=== PATIENT | male | born 1985 | race Caucasian/White ===

== ENCOUNTER 2017-06-20 14:46 | Inpatient (IN) ==
--- NOTE | 2017-06-20 15:19 | Emergency Department Note ---
Disposition Clinical Impression: Suicidal ideation Depression Qualifiers: Depression Type: unspecified Qualified Code(s): F32.9 - Major depressive disorder, single episode, unspecified Alcohol dependence Qualifiers: Substance use status: unspecified alcohol-induced disorder Qualified Code(s): F10.29 - Alcohol dependence with unspecified alcohol-induced disorder Disposition: Admitted As Inpatient Condition: Fair Referrals: NONE,PCP [Primary Care Provider] - Forms: ED Satisfaction Letter Time of Disposition: 17:47 Psych HPI - General Chief Complaint: ED Psychiatric Symptoms Stated Complaint: SI Time Seen by Provider: 06/20/17 14:56 Source: patient Mode of arrival: ambulatory Limitations: no limitations Nursing Notes Reviewed: Yes Vital Signs Reviewed: Yes - History of Present Illness HPI Narrative: Nontoxic-appearing 32-year-old male presents for evaluation of worsening depression and suicidal ideation and for the past one month. The patient states that his girlfriend has threatened to leave him with his 4-month-old daughter. He also admits to frequent recreational use of methamphetamine, last of which was earlier this morning. He denies any thoughts of harming anybody else. He denies any auditory or visual hallucinations. He denies any medical complaints or concerns at this time. He denies any previous episodes such as this. Pt complaint: suicidal ideation, feels depressed Onset (ago): month(s) (1) Duration: getting worse History of similar episodes: No Improves with: none Worsens with: none Context: recent drug abuse, significant life stressor Associated Psychiatric Symptoms: depression, suicidal ideation Associated symptoms: Reports: denies other symptoms Traumatic symptoms: denies traumatic injury Treatments prior to arrival: none Self harm or harm to others: admits thoughts of self harm - Related Data Allergies Allergy/AdvReac Type Severity Reaction Status Date / Time Unable to Assess Allergy Verified 06/20/17 14:52 All systems ED: reviewed and negative except as stated. Constitutional: Denies: fever, chills, weakness, weight change Eyes: Denies: eye pain, eye discharge, vision change ENT ED: Denies: ear pain, throat pain, dental pain, hearing loss, epistaxis, congestion, dysphagia Cardiovascular: Denies: chest pain, palpitations, dyspnea on exertion, edema, syncope Respiratory: Denies: cough, dyspnea, wheezes, hemoptysis, stridor Gastrointestinal: Denies: abdominal pain, nausea, vomiting, diarrhea, constipation, hematemesis, melena, hematochezia Genitourinary: Denies: urgency, dysuria, frequency, hematuria Musculoskeletal: Denies: back pain, neck pain, arthralgia, myalgia Integumentary: Denies: rash, abrasion, lesions Neurological: Denies: headache, weakness, numbness, paresthesias, confusion, abnormal gait, vertigo Psychiatric: Reports: as per HPI, depression, suicidal thoughts. Denies: anxiety, homicidal thoughts, auditory hallucinations, visual hallucinations Endocrine: Denies: fatigue Hematological/Lymphatic: Denies: easy bleeding, easy bruising Allergic/Immunologic: Denies: facial swelling, urticaria Past Medical History - Past Medical History Attestation: Yes The following information was validated with the patient. Source: patient, nursing notes reviewed Medical history: Reports: hepatitis Psychiatric history: Reports: no psych history - Social History Smoking Status: Current every day smoker Alcohol use: Reports: heavy, recent Drug use: Reports: methamphetamine Physical Exam - General Limitations: no limitations General appearance: alert, in no apparent distress - Head Head exam: atraumatic, normocephalic, normal inspection - Eye Eye exam: Present: normal appearance, PERRL, EOMI. Absent: nystagmus - ENT ENT exam: mucous membranes moist - Neck Neck exam: Present: normal inspection, full ROM, trachea midline - Chest Chest inspection: Present: normal inspection, symmetric chest wall rise - Respiratory Respiratory exam: Present: normal lung sounds bilaterally. Absent: respiratory distress, wheezes, stridor, accessory muscle use, prolonged expiratory phase - Cardiovascular Cardiovascular exam: Present: regular rate, normal rhythm, normal heart sounds - Abdominal Exam Abdominal exam: Present: soft, Non-Tender, normal bowel sounds - Extremities Exam Extremities exam: Present: normal inspection, full ROM. Absent: tenderness, pedal edema - Back Exam Back exam: Present: normal inspection, full ROM. Absent: tenderness - Neurological Exam Neurological exam: Present: alert, oriented X3 - Psychiatric Psychiatric exam: Present: normal affect, normal mood - Skin Skin exam: Present: warm, dry, intact, normal color. Absent: rash Course Course Narrative: 1745: I spoke with injury from [facility] after she had discussed this patient's case with the psychiatrist on-call. The psychiatrist operator specialist communications requested the patient be admitted to medicine for observation, due to the fact that he is a heavy daily drinker. He had disclosed to LESLIE Stephens, that he drinks anywhere from 12- 24 cans of beer per day. His last drink was earlier this morning. I discussed this plan with Dr. Eaton, who has had [id number] time with the patient. Dr. Eaton is in agreement with this plan. 175: I spoke with Pernell Breen, of the hospitalist service, who has accepted the patient for admission and the hospitalist care. The patient will undergo an observation period to monitor for alcohol withdrawal, prior to proceeding with further psychiatric assessment and treatment. Vital Signs Temperature 98.3 F 06/20/17 14:50 Pulse Rate 90 06/20/17 14:50 Respiratory Rate 18 06/20/17 14:50 Blood Pressure 115/77 06/20/17 14:50 O2 Sat by Pulse Oximetry 99 06/20/17 14:50 Temperature 98.3 F 06/20/17 14:50 Pulse Rate 90 06/20/17 14:50 Respiratory Rate 18 06/20/17 14:50 Blood Pressure 115/77 06/20/17 14:50 O2 Sat by Pulse Oximetry 99 06/20/17 14:50 Oxygen Delivery Oxygen Delivery Room Air Psych - Lab Data Lab results reviewed: Yes I reviewed the patient's lab results. Lab results narrative: Laboratory Last Values WBC 6.2 K/mcL (4.3-11.1) 06/20/17 15:10 RBC 5.23 M/mcL (4.19-5.50) 06/20/17 15:10 Hgb 16.1 g/dL (12.9-16.9) 06/20/17 15:10 Hct 48.4 % (37.5-50.1) 06/20/17 15:10 MCV 92.5 fL (83.0-100.0) 06/20/17 15:10 MCH 30.8 pg (28.0-33.3) 06/20/17 15:10 MCHC 33.3 g/dL (31.6-35.5) 06/20/17 15:10 RDW 12.4 % (11.5-14.5) 06/20/17 15:10 Plt Count 318 K/mcL (140-400) 06/20/17 15:10 MPV 9.5 fL (9.4-12.4) 06/20/17 15:10 Immature Gran % 0.2 % (0-4) 06/20/17 15:10 Seg Neutrophils % 53.5 % 06/20/17 15:10 Lymphocytes % 29.3 % 06/20/17 15:10 Monocytes % 13.7 % 06/20/17 15:10 Eosinophils % 2.8 % 06/20/17 15:10 Basophils % 0.5 % 06/20/17 15:10 Neutrophils # 3.3 K/mcL (1.6-8.9) 06/20/17 15:10 Lymphocytes # 1.8 K/mcL (0.6-4.6) 06/20/17 15:10 Monocytes # 0.8 K/mcL (0.0-1.3) 06/20/17 15:10 Eosinophils # 0.2 K/mcL (0.0-0.6) 06/20/17 15:10 Basophils # 0.0 K/mcL (0.0-0.2) 06/20/17 15:10 Sodium 135 mEq/L (136-145) L 06/20/17 15:10 Potassium 3.8 mEq/L (3.5-5.1) 06/20/17 15:10 Chloride 102 mEq/L (98-107) 06/20/17 15:10 Carbon Dioxide 29 mEq/L (23-29) 06/20/17 15:10 BUN 9 mg/dL (6-20) 06/20/17 15:10 Creatinine 0.75 mg/dL (0.70-1.30) 06/20/17 15:10 Est GFR ( Amer) > 60 (> 60) 06/20/17 15:10 Est GFR (Non-Af Amer) > 60 (> 60) 06/20/17 15:10 BUN/Creatinine Ratio 12 (6-26) 06/20/17 15:10 Glucose 69 mg/dL (70-105) L 06/20/17 15:10 Calculated Osmolality 277 (280-300) L 06/20/17 15:10 Calcium 9.4 mg/dL (8.6-10.3) 06/20/17 15:10 TSH 0.635 mcIU/mL (0.340-5.600) 06/20/17 15:10 Urine Color Yellow (Yellow) 06/20/17 15:10 Urine Clarity Clear (Clear) 06/20/17 15:10 Urine pH 7.0 pH Units (5.0-8.0) 06/20/17 15:10 Ur Specific [place] 1.023 (1.010-1.025) 06/20/17 15:10 Urine Protein Negative mg/dL (Neg-Trace) 06/20/17 15:10 Urine Glucose (UA) Normal mg/dL (Normal) 06/20/17 15:10 Urine Ketones Negative mg/dL (Negative) 06/20/17 15:10 Urine Blood Negative (Negative) 06/20/17 15:10 Urine Nitrite Negative (Negative) 06/20/17 15:10 Urine Bilirubin Negative (Negative) 06/20/17 15:10 Urine Urobilinogen Normal mg/dL (Normal) 06/20/17 15:10 Ur Leukocyte Esterase Negative (Negative) 06/20/17 15:10 Salicylates < 5.0 mg/dL (15.0-30.0) L 06/20/17 15:10 Urine Opiates Screen Negative ng/mL (Zczlay=630) 06/20/17 15:10 Acetaminophen < 1.0 mcg/mL (10-30) L 06/20/17 15:10 Ur Barbiturates Screen Negative ng/mL (Ftvehu=049) 06/20/17 15:10 Ur Phencyclidine Scrn Negative ng/mL (Cutoff=25) 06/20/17 15:10 Ur Amphetamines Screen Positive ng/mL (Dxxjdo=6823) H 06/20/17 15:10 U Benzodiazepines Scrn Negative ng/mL (Tdeanr=625) 06/20/17 15:10 Urine Cocaine Screen Negative ng/mL (Cutoff= 300) 06/20/17 15:10 U Marijuana (THC) Screen Negative ng/mL (Cutoff = 50) 06/20/17 15:10 Ethyl Alcohol < 10 mg/dL (0-10) 06/20/17 15:10 Result diagrams: 06/20/17 15:10 06/20/17 15:10 Lab Results 06/20/17 06/20/17 06/20/17 Range/Units 15:10 15:10 15:10 WBC 6.2 (4.3-11.1) K/mcL RBC 5.23 (4.19-5.50) M/mcL Hgb 16.1 (12.9-16.9) g/dL Hct 48.4 (37.5-50.1) % MCV 92.5 (83.0-100.0) fL MCH 30.8 (28.0-33.3) pg MCHC 33.3 (31.6-35.5) g/dL RDW 12.4 (11.5-14.5) % Plt Count 318 (140-400) K/mcL MPV 9.5 (9.4-12.4) fL Immature Gran % 0.2 (0-4) % Seg Neutrophils % 53.5 % Lymphocytes % 29.3 % Monocytes % 13.7 % Eosinophils % 2.8 % Basophils % 0.5 % Neutrophils # 3.3 (1.6-8.9) K/mcL Lymphocytes # 1.8 (0.6-4.6) K/mcL Monocytes # 0.8 (0.0-1.3) K/mcL Eosinophils # 0.2 (0.0-0.6) K/mcL Basophils # 0.0 (0.0-0.2) K/mcL Sodium (136-145) mEq/L Potassium (3.5-5.1) mEq/L Chloride (98-107) mEq/L Carbon Dioxide (23-29) mEq/L BUN (6-20) mg/dL Creatinine (0.70-1.30) mg/dL Est GFR ( Amer) (> 60) Est GFR (Non-Af Amer) (> 60) BUN/Creatinine Ratio (6-26) Glucose (70-105) mg/dL Calculated Osmolality (280-300) Calcium (8.6-10.3) mg/dL TSH (0.340-5.600) mcIU/mL Urine Color Yellow (Yellow) Urine Clarity Clear (Clear) Urine pH 7.0 (5.0-8.0) pH Units Ur Specific [place] 1.023 (1.010-1.025) Urine Protein Negative (Neg-Trace) mg/dL Urine Glucose (UA) Normal (Normal) mg/dL Urine Ketones Negative (Negative) mg/dL Urine Blood Negative (Negative) Urine Nitrite Negative (Negative) Urine Bilirubin Negative (Negative) Urine Urobilinogen Normal (Normal) mg/dL Ur Leukocyte Esterase Negative (Negative) Salicylates (15.0-30.0) mg/dL Urine Opiates Screen Negative (Mxlvky=886) ng/mL Acetaminophen (10-30) mcg/mL Ur Barbiturates Screen Negative (Ymahai=633) ng/mL Ur Phencyclidine Scrn Negative (Cutoff=25) ng/mL Ur Amphetamines Screen Positive H (Zybqee=8509) ng/mL U Benzodiazepines Scrn Negative (Uxtqmk=697) ng/mL Urine Cocaine Screen Negative (Cutoff= 300) ng/mL U Marijuana (THC) Screen Negative (Cutoff = 50) ng/mL Ethyl Alcohol (0-10) mg/dL 06/20/17 Range/Units 15:10 WBC (4.3-11.1) K/mcL RBC (4.19-5.50) M/mcL Hgb (12.9-16.9) g/dL Hct (37.5-50.1) % MCV (83.0-100.0) fL MCH (28.0-33.3) pg MCHC (31.6-35.5) g/dL RDW (11.5-14.5) % Plt Count (140-400) K/mcL MPV (9.4-12.4) fL Immature Gran % (0-4) % Seg Neutrophils % % Lymphocytes % % Monocytes % % Eosinophils % % Basophils % % Neutrophils # (1.6-8.9) K/mcL Lymphocytes # (0.6-4.6) K/mcL Monocytes # (0.0-1.3) K/mcL Eosinophils # (0.0-0.6) K/mcL Basophils # (0.0-0.2) K/mcL Sodium 135 L (136-145) mEq/L Potassium 3.8 (3.5-5.1) mEq/L Chloride 102 (98-107) mEq/L Carbon Dioxide 29 (23-29) mEq/L BUN 9 (6-20) mg/dL Creatinine 0.75 (0.70-1.30) mg/dL Est GFR ( Amer) > 60 (> 60) Est GFR (Non-Af Amer) > 60 (> 60) BUN/Creatinine Ratio 12 (6-26) Glucose 69 L (70-105) mg/dL Calculated Osmolality 277 L (280-300) Calcium 9.4 (8.6-10.3) mg/dL TSH 0.635 (0.340-5.600) mcIU/mL Urine Color (Yellow) Urine Clarity (Clear) Urine pH (5.0-8.0) pH Units Ur Specific [place] (1.010-1.025) Urine Protein (Neg-Trace) mg/dL Urine Glucose (UA) (Normal) mg/dL Urine Ketones (Negative) mg/dL Urine Blood (Negative) Urine Nitrite (Negative) Urine Bilirubin (Negative) Urine Urobilinogen (Normal) mg/dL Ur Leukocyte Esterase (Negative) Salicylates < 5.0 L (15.0-30.0) mg/dL Urine Opiates Screen (Oeeqbd=799) ng/mL Acetaminophen < 1.0 L (10-30) mcg/mL Ur Barbiturates Screen (Hruxgn=330) ng/mL Ur Phencyclidine Scrn (Cutoff=25) ng/mL Ur Amphetamines Screen (Wgjxrk=7594) ng/mL U Benzodiazepines Scrn (Yyigpe=424) ng/mL Urine Cocaine Screen (Cutoff= 300) ng/mL U Marijuana (THC) Screen (Cutoff = 50) ng/mL Ethyl Alcohol < 10 (0-10) mg/dL Psychiatric Medical Clearance - Medical Clearance Checklist Medical History: Suicidal ideation (Acute) Depression (Acute) Alcohol dependence (Acute) No Social History Section defined Current Vitals: Last Vital Signs Temp 98.3 F 06/20/17 14:50 Pulse 90 06/20/17 14:50 Resp 18 06/20/17 14:50 BP 115/77 06/20/17 14:50 Pulse Ox 99 06/20/17 14:50 Psychiatric Lab Panel: Drug Levels and Toxicity 06/20/17 06/20/17 15:10 15:10 Urine Opiates Screen Negative Acetaminophen < 1.0 L Ur Barbiturates Screen Negative Ur Phencyclidine Scrn Negative Ur Amphetamines Screen Positive H U Benzodiazepines Scrn Negative Urine Cocaine Screen Negative U Marijuana (THC) Screen Negative Ethyl Alcohol < 10 Abnormal Labs: Abnormal lab results Sodium 135 mEq/L (136-145) L 06/20/17 15:10 Glucose 69 mg/dL (70-105) L 06/20/17 15:10 Calculated Osmolality 277 (280-300) L 02/04/18 15:10 Salicylates < 5.0 mg/dL (15.0-30.0) L 06/20/17 15:10 Acetaminophen < 1.0 mcg/mL (10-30) L 06/20/17 15:10 Ur Amphetamines Screen Positive ng/mL (Zeubgi=6004) H 06/20/17 15:10 Attestation Statement - Attestation Attestation: Patient was seen in cooperation with the physician machine operator assistant. I reviewed the history, physical, assessment, and plan, and I agree with the findings. Additionally I personally saw and evaluated this patient and had [id number] time with this patient. 32-year-old male presents to the emergency department with suicidal ideation and wanting to . He is an alcoholic and is now using crystal meth. 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 He said the last 3 or 4 months his depression for getting worse he is to the point that he feels like he just wanted unwanted be here anymore, but he does not have a specific plan in which to hurt himself or anyone else. He says he occasionally hears voices but only after his been up for extended periods of time. He is here seeking help today. On examination vital signs are stable. ENT is unremarkable. Heart normal lungs normal. Abdomen soft nontender. Extremities unremarkable. Neurologically intact patient does not appear intoxicated he really took a beer this morning and alignment of meth. Skin no rashes and psychiatric exam patient appears depressed. ED course we will do basic labs to get a medical clearance. Them will call [facility]. They will help disposition the patient. [facility] did want the patient to be admitted, however they were concerned because of the polysubstance abuse they wanted him admitted to medicine first. Hospitalist was notified and agreed to accept the patient to ensure there is no issues with detox. And further psychiatric evaluation after that. I agree with the resident physician assessment and plan.
[2017-06-20 15:31] LABS: Basophils % 0.5 %; Eosinophils # 0.2 K/mcL (0.0-0.6); Eosinophils % 2.8 %; Hematocrit 48.4 % (37.5-50.1); Hemoglobin 16.1 g/dL (12.9-16.9); Immature Granulocytes % 0.2 % (0-4); Lymphocytes # 1.8 K/mcL (0.6-4.6); Lymphocytes % 29.3 %; Mean Corpuscular HGB Conc 33.3 g/dL (31.6-35.5); Mean Corpuscular Hemoglobin 30.8 pg (28.0-33.3); Mean Corpuscular Volume 92.5 fL (83.0-100.0); Mean Platelet Volume 9.5 fL (9.4-12.4); Monocytes # 0.8 K/mcL (0.0-1.3); Monocytes % 13.7 %; Neutrophils # 3.3 K/mcL (1.6-8.9); Platelet Count 318 K/mcL (140-400); Red Blood Count 5.23 M/mcL (4.19-5.50); Red Cell Distribution Width 12.4 % (11.5-14.5); Segmented Neutrophils % 53.5 %
[2017-06-20 15:33] LABS: Bilirubin,Urine Negative (Negative); Blood,Urine Negative (Negative); Clarity,Urine Clear (Clear); Color,Urine Yellow (Yellow); Glucose,Urine (UA) Normal (Normal); Ketones,Urine Negative (Negative); Leukocyte Esterase,Urine Negative (Negative); Nitrite,Urine Negative (Negative); Protein,Urine Negative (Neg-Trace); Specific Gravity,Urine 1.023 (1.010-1.025); Urobilinogen,Urine Normal (Normal)
[2017-06-20 15:50] LABS: Acetaminophen < 1.0 mcg/mL (10-30); Ethanol < 10 mg/dL (0-10); Salicylate < 5.0 mg/dL (15.0-30.0)
[2017-06-20 15:52] LABS: BUN/Creatinine Ratio 12 (6-26); Blood Urea Nitrogen 9 mg/dL (6-20); Calcium 9.4 mg/dL (8.6-10.3); Carbon Dioxide 29 mEq/L (23-29); Chloride 102 mEq/L (98-107); Glucose 69 mg/dL (70-105); Osmolality,Calculated 277 (280-300); Potassium 3.8 mEq/L (3.5-5.1); Sodium 135 mEq/L (136-145); eGFR For African Americans > 60 (> 60); eGFR For Non-African Americans > 60 (> 60)
[2017-06-20 16:03] LABS: Thyroid Stimulating Hormone 0.635 mcIU/mL (0.340-5.600)
[2017-06-20 16:17] LABS: Amphetamine Screen,Urine Positive ng/mL (Cutoff=1000); Barbiturate Screen,Urine Negative ng/mL (Cutoff=200); Benzodiazepines Screen,Urine Negative ng/mL (Cutoff=200); Cannabinoid Screen,Urine Negative ng/mL (Cutoff = 50); Cocaine Screen,Urine Negative ng/mL (Cutoff= 300); Opiate Screen,Urine Negative ng/mL (Cutoff=300); Phencyclidine Screen,Urine Negative ng/mL (Cutoff=25)
[2017-06-20] MEDS ORDERED: Thiamine (B-1) 100 MG in D5% in Water 50 ML IVPB ONE (17:48)
[2017-06-20] MEDS ORDERED: MVI, adult with vitamin K 10 ML in 0.9 % Sodium Chloride 1,000 ML IVC ONE (17:48)
[2017-06-20] MEDS ORDERED: Folic Acid 1 MG in D5% in Water 50 ML IVPB ONE (17:48)
[2017-06-20 18:18] LABS: Prothrombin Time 10.3 Seconds (9.4-12.1)
[2017-06-20 18:30] LABS: Magnesium 2.2 mg/dL (1.6-2.6); Phosphorous 3.9 mg/dL (2.7-4.5)
[2017-06-20] MEDS ORDERED: Folic Acid 1 MG in 0.9 % Sodium Chloride 50 ML IVPB ONE (18:30)
[2017-06-20] MEDS ORDERED: Thiamine (B-1) 100 MG in 0.9 % Sodium Chloride 50 ML IVPB ONE (18:30)
[2017-06-20] MEDS ORDERED: *HR* LORazepam 2 MG/ML VIAL IVP ONE ×2 (18:53)
[2017-06-20] MEDS ORDERED: *HR* Water for inj. (sterile) 10 ML VIAL IV ONE (18:53)
[2017-06-20] MEDS ORDERED: Naloxone 0.4 MG/ML INJ IVP PRN (19:21)
[2017-06-20] MEDS ORDERED: *HR* LORazepam 2 MG/ML VIAL IVP PRN (19:25)
[2017-06-20] MEDS: Nicotine 14 MG PATCH.TD24 TD SCH (20:04)
[2017-06-20] MEDS ORDERED: Ipratropium/Albuterol Neb 3 ML IH PRN (20:33)
--- NOTE | 2017-06-20 23:51 | Internal Med History&Physical ---
Addendum entered and electronically signed by Pernell Slater CNP 00:18: Patient encounter was on 06/20/17 Original Note: <Pernell Slater - Last Filed: 06/21/17 00:18> Date of Encounter: 06/21/17 Time of Encounter: 19:00 Assessment and Plan (1) Suicidal ideation Current visit: Yes Status: Acute Acute on chronic suicidal ideation. Pt. states he was suicidal today and previously d/t relationship problems. States he snorted meth this morning and drink 24 oz of beer. Reports trying to shoot up and OD one week ago as well as previously. Reports chronic depression. Denies receiving psychiatric help previously or any previous psychiatric hospitalizations. Hx of alcohol abuse ( drinks 12-24 beers daily) and illicit drug abuse (cocaine, heroin, and meth). During exam, pt. states he no longer has suicidal ideations today and no homicidal ideation. States he would like help. Suicide and seizure precautions. Sitter. D5 in 0.9 NS d/t hypoglycemia. Continuous cardiac telemetry. EKG. CIWA scale. 1 mg Ativan Q2 for agitation/withdrawal. Psychiatric consult ordered for post-discharge recommendations. SW consult ordered to assess for rehabilitation needs. Pt. to be monitored closely for signs of depression or changes in mentation. Pt. discussed w/Dr. Rowland who is in agreement w/plan of care. Pt. is high risk for further morbidity d/t suicidal ideations today, previous ideations and attempts at suicide, no previous psychiatric care, current drug and alcohol abuse. Observation. (2) Drug abuse and dependence Current visit: Yes Status: Chronic Hx of chronic drug abuse and dependence. Pt. states he uses cocaine, heroin, and meth. States he used heroin four days ago and meth was snorted this morning. States he tried to shoot up and OD 1 week ago. Reports he has attempted to shoot up and OD several times. Psychiatric consult ordered. SW consult ordered for rehabilitation needs. Ativan 1 mg Q2 for agitation/ withdrawal. Seizure precautions. Neuro checks Q2. EKG. Cardiac monitoring. Supplemental O2 w/titration and SpO2 monitoring. (3) Alcohol dependence Current visit: Yes Status: Chronic Hx of chronic alcohol abuse. Pt. reports he drinks 12-24 beers daily. CIWA scale. 720 mL TIDWM beer ordered. Hepatic panel ordered. SW consult ordered to assess for rehabilitation needs post-discharge. Thiamine and folic acid supplementation. Qualifiers: Substance use status: unspecified alcohol-induced disorder Qualified Code(s ): F10.29 - Alcohol dependence with unspecified alcohol-induced disorder (4) Depression Current visit: Yes Status: Chronic Hx of chronic depression. Pt. reports he does not see provider for his psychiatric needs. Psychiatric consult ordered to assess for post-discharge needs. SW consult ordered for possible rehabilitation. Qualifiers: Depression Type: other depression Qualified Code(s): F32.89 - Other specified depressive episodes (5) Hepatitis Current visit: Yes Status: Chronic Hx of hepatitis. Pt. unclear about dx. Hepatic panel ordered. Hepatitis viral panel ordered. (6) COPD (chronic obstructive pulmonary disease) Current visit: Yes Status: Chronic Hx of chronic COPD w/emphysema. Stable. Supplemental O2 w/titration and SpO2 monitoring. DuoNebs Q6 PRN. Qualifiers: COPD type: emphysema Emphysema type: unspecified Qualified Code(s): J43.9 - Emphysema, unspecified (7) DVT prophylaxis Current visit: Yes Status: Acute Lovenox 40 mg 0630 daily for DVT prophylaxis. Monitor pt. for signs of bleeding. Internal Medicine - H&P: HPI Chief complaint: SI/Drug/Alcohol abuse Admitted From: Emergency Dept Plans for Post Hospital Care: Home History of present illness: Mr. Bates is a 32 year old male with medical hx of COPD/emphysema and hepatitis presents from the ED with chief complaint of suicidal ideation today. Patient states that he snorted meth this morning and drank 24 oz. of beer before coming to ED. States he drinks 12-24 beers per day and uses cocaine, heroin, and meth. Reports meth is what he uses most often, but he used heroin 4 days ago. Pt. states he is suicidal d/t relationship problems and tried to commit suicide 1 week ago by shooting up. Reports several attempts prior to that. Denies previous psychiatric care or hospitalization. Pt. reports SOB but denies recent illness, fever, chills, nausea, vomiting, chest pain, headache, palpitations, abdominal pain, diarrhea, constipation, dizziness, lightheadedness, pre-syncope , or syncope. Past Med Surg Social Fam HX - Past Medical History Source: patient, old records reviewed, obtained from family Medical history: COPD, hepatitis Psychiatric history: no psych history - Social History Smoking Status: Current every day smoker Packs per day: 2 PPD Smokeless Tobacco Status: No Alcohol use: heavy (12-24 beers daily), recent Drug use: cocaine, methamphetamine, other (Heroin) Current living situation: Home Activity Level: Independent ambulation Recent Out of Country Travel Within the Last 8 Weeks: No Exposure or Possible Exposure to Illness During Travel: No - Family History Father Race: Family Member Ethnicity: Non- Living Status: Still Living Hx Family Cardiac Disorders: Yes Mother Race: Family Member Ethnicity: Non- Living Status: Still Living Hx Family Autoimmune Disorders: Yes (RA) Sister Race: Family Member Ethnicity: Non- Living Status: Still Living Hx Family Medical Disorders: No Internal Medicine - H&P: Meds 3 Allergy/AdvReac Type Severity Reaction Status Date / Time Unable to Assess Allergy Verified 06/20/17 14:52 All Systems PM: A 10-system review of systems was performed and is negative for pertinent findings except as documented above in the HPI. - Constitutional Constitutional: no chills, no fever(s), no night sweats - EENT Eyes: no change in vision, no discharge, no pain, no photophobia Ears: no ear discharge, no ear pain, no tinnitus Nose, mouth and throat: no dysphagia, no nasal discharge, no neck pain, no sore throat - Breasts Breasts: as per HPI - Cardiovascular Cardiovascular ROS IM: as per HPI, dyspnea, no chest pain, no diaphoresis, no lightheadedness, no palpitations, no syncope - Respiratory Respiratory: as per HPI, dyspnea, no cough, no wheezing, no excessive phlegm production - Gastrointestinal Gastrointestinal: no abdominal pain, no diarrhea, no hematemesis, no hematochezia, no melena, no nausea, no vomiting - Genitourinary Genitourinary ROS male: as per HPI - Musculoskeletal Musculoskeletal ROS IM: no numbness, no tingling - Integumentary Integumentary IM: no rash, no unusual bruising - Neurological Neurological ROS: no confusion, no convulsions, no focal weakness, no numbness, no tingling, no tremor(s) - Psychiatric Psychiatric: as per HPI - Endocrine Endocrine IM: as per HPI - Hematologic/Lymphatic Hematologic/Lymphatic: no easy bruising - Allergic/Immunologic Allergic/Immunologic: as per HPI - Constitutional Vitals: Temp Pulse Resp BP Pulse Ox 99.1 F 61 16 107/65 97 06/20/17 20:14 06/20/17 20:14 06/20/17 20:14 06/20/17 20:14 06/20/17 20:14 General appearance: Present: cooperative, A&O X 3, pleasant, no acute distress, underweight, answers questions appropriately - Head Head exam: Present: atraumatic, normocephalic - Eye Eye exam: Present: PERRL, conjuntiva pink, sclera anicteric Pupils: Present: PERRL - ENT ENT exam: Present: normal exam - Neck Neck exam general surgery: Present: normal inspection, supple, trachea midline. Absent: lymphadenopathy - Respiratory Respiratory exam: Present: CTAB. Absent: accessory muscle use, rales, rhonchi, wheezes - Cardiovascular Cardiovascular exam: Present: RRR, +S1, +S2. Absent: diastolic murmur, gallop, rubs, systolic murmur - GI/Abdominal GI/Abdominal exam: Present: normal bowel sounds, soft, no peritoneal signs. Absent: distended, tenderness - Rectal Rectal exam: Present: deferred - Additional comments: exam deferred. - Extremities Exam Extremities exam: Present: warm, radial pulses palpable and symmetrical. Absent : calf tenderness, cyanotic, pedal edema - Back Exam Back exam: Present: normal inspection - Neurological Exam Neurological exam: Present: CN II-XII intact, oriented X3, no focal deficits. Absent: pronater drift, facial droop, speech deficit - Psychiatric Psychiatric exam: Present: suicidal ideation - Skin Skin exam: Present: dry, intact Internal Med - H&P Results - Labs CBC & Chem 7: 06/20/17 15:10 06/20/17 15:10 <Marcin Rowland - Last Filed: 06/21/17 02:52> Date of Encounter: 06/21/17 Time of Encounter: 00:45 - Constitutional Vitals: Temp Pulse Resp BP Pulse Ox 98.2 F 55 16 94/57 97 06/20/17 23:56 06/20/17 23:56 06/20/17 23:56 06/20/17 23:56 06/20/17 23:56 General appearance: Present: cooperative, A&O X 3, pleasant, no acute distress - Head Head exam: Present: atraumatic - Eye Eye exam: Present: EOMI, normal appearance, PERRL. Absent: scleral icterus Pupils: Present: normal accommodation - ENT ENT exam: Present: mucous membranes dry, normal exam - Neck Neck exam general surgery: Present: supple - Respiratory Respiratory exam: Present: CTAB. Absent: rales, rhonchi, wheezes - Cardiovascular Cardiovascular exam: Present: RRR, +S1, +S2 - GI/Abdominal GI/Abdominal exam: Present: soft. Absent: tenderness - Extremities Exam Extremities exam: Present: warm. Absent: calf tenderness, cyanotic, pedal edema - Back Exam Back exam: Absent: CVA tenderness (L), CVA tenderness (R) - Neurological Exam Neurological exam: Present: alert, CN II-XII intact, oriented X3, no focal deficits - Psychiatric Psychiatric exam: Present: depressed, flat affect, suicidal ideation - Skin Skin exam: Present: dry, warm Internal Med - H&P Results - Labs CBC & Chem 7: 06/21/17 01:07 06/20/17 15:10 Labs: Short CBC 06/21/17 Range/Units 01:07 WBC 4.3 (4.3-11.1) K/mcL Hgb 14.8 (12.9-16.9) g/dL Hct 44.2 (37.5-50.1) % Plt Count 286 (140-400) K/mcL Neutrophils # 1.3 L (1.6-8.9) K/mcL Cardiac Enzymes 06/21/17 Range/Units 01:07 Troponin I < 0.03 (< 0.04) ng/mL - Attending Attestation I discussed the patient [place], PMH, ROS, lab data, and exam findings with Matthew Slater CNP. I then saw and examined patient independently as well. Patient is awake, resting, and in no distress. He admits to suicidal plans and intent. He is requesting mental health and help. He admits to drug abuse, especially in efforts to hurt himself/overdose. He also drinks excessive alcohol -- at least 12 -24 beers per day. He has never gone through alcohol withdrawal because he has never stopped drinking alcohol. I agree with [facility] protocol, but I asked Matthew to order some beer for him TID with meals in efforts of avoiding withdrawal. We will keep him in suicide precautions and have a sitter at the bedside. Psychiatry will see him in the morning. Meanwhile, we will monitor him on telemetry. I could not find an EKG from the ER, and I don' t believe one was done. I will order a baseline EKG and continue monitoring his cardiorespiratory status. Other than my comments above and noted exam findings, I agree with Matthew's assessment and plan.
[2017-06-21 01:44] LABS: Basophils % 0.7 %; Eosinophils # 0.2 K/mcL (0.0-0.6); Eosinophils % 4.2 %; Hematocrit 44.2 % (37.5-50.1); Hemoglobin 14.8 g/dL (12.9-16.9); Lymphocytes # 2.1 K/mcL (0.6-4.6); Lymphocytes % 49.2 %; Mean Corpuscular HGB Conc 33.5 g/dL (31.6-35.5); Mean Corpuscular Volume 92.5 fL (83.0-100.0); Mean Platelet Volume 9.5 fL (9.4-12.4); Monocytes # 0.6 K/mcL (0.0-1.3); Monocytes % 14.8 %; Neutrophils # 1.3 K/mcL (1.6-8.9); Platelet Count 286 K/mcL (140-400); Red Blood Count 4.78 M/mcL (4.19-5.50); Red Cell Distribution Width 12.4 % (11.5-14.5); Segmented Neutrophils % 31.1 %
[2017-06-21 01:50] LABS: Hemoglobin A1C 5.1 %
[2017-06-21 02:51] LABS: Hepatitis A Antibody IgM Nonreactive (Nonreactive); Hepatitis B Core IgM Nonreactive (Nonreactive); Hepatitis B Surface Antigen Nonreactive (Nonreactive)
[2017-06-21 02:53] LABS: Hepatitis C Virus Antibody Reactive (Nonreactive)
[2017-06-21 03:15] LABS: Albumin 3.4 g/dL (3.5-5.7); Albumin/Globulin Ratio 1.3 (1.1-2.2); Bilirubin,Direct 0.1 mg/dL (0.0-0.2); Bilirubin,Indirect 0.3 mg/dL (0.0-1.2); Bilirubin,Total 0.4 mg/dL (0.3-1.0); Globulin 2.6 g/dL (2.4-3.5)
[2017-06-21 03:18] LABS: Alanine Aminotransferase 92 Units/L (7-52); Albumin 3.4 g/dL (3.5-5.7); Albumin/Globulin Ratio 1.4 (1.1-2.2); Alkaline Phosphatase 83 Units/L (34-104); Aspartate Amino Transferase 66 Units/L (13-39); BUN/Creatinine Ratio 11 (6-26); Bilirubin,Total 0.4 mg/dL (0.3-1.0); Blood Urea Nitrogen 11 mg/dL (6-20); Calcium 8.5 mg/dL (8.6-10.3); Carbon Dioxide 26 mEq/L (23-29); Chloride 106 mEq/L (98-107); Cholesterol 99 mg/dL (< 200); Globulin 2.5 g/dL (2.4-3.5); Glucose 97 mg/dL (70-105); HDL Cholesterol 50 mg/dL (40-59); LDL Cholesterol,Calculated 40 mg/dL (0-99); Magnesium 2.1 mg/dL (1.6-2.6); Osmolality,Calculated 281 (280-300); Phosphorous 3.6 mg/dL (2.7-4.5); Potassium 4.1 mEq/L (3.5-5.1); Sodium 136 mEq/L (136-145); Total Protein 5.9 g/dL (6.4-8.9); Triglycerides 45 mg/dL (< 150); eGFR For African Americans > 60 (> 60); eGFR For Non-African Americans > 60 (> 60)
[2017-06-21] MEDS: D5% in 0.9% NACL 1,000 ML IVC SCH ×2 (03:57→14:22)
[2017-06-21] MEDS: *HR* Enoxaparin 40 MG/0.4 ML SYRINGE SQ SCH (05:52)
[2017-06-21] MEDS: Acetaminophen 325 MG TABLET PO PRN (10:29)
[2017-06-21] MEDS: Nicotine 14 MG PATCH.TD24 TD SCH (10:30)
[2017-06-21] MEDS: Beer can PO SCH ×4 (10:31→17:20)
--- NOTE | 2017-06-21 15:01 | Internal Med Progress Note ---
Date of Encounter: 06/21/17 Time of Encounter: 15:39 - Assessment and plan (1) Suicidal ideation Current Visit: Yes Status: Acute Assessment and plan: Acute on chronic suicidal ideation. Pt. states he was suicidal today and previously d/t relationship problems. States he snorted meth this morning and drink 24 oz of beer. Reports trying to shoot up and OD one week ago as well as previously. Reports chronic depression. Denies receiving psychiatric help previously or any previous psychiatric hospitalizations. Hx of alcohol abuse ( drinks 12-24 beers daily) and illicit drug abuse (cocaine, heroin, and meth). During exam, pt. states he no longer has suicidal ideations today and no homicidal ideation. States he would like help. Suicide and seizure precautions. Sitter. D5 in 0.9 NS d/t hypoglycemia. Continuous cardiac telemetry. EKG. CIWA scale. 1 mg Ativan Q2 for agitation/withdrawal. SW consult ordered to assess for rehabilitation needs. Pt. to be monitored closely for signs of depression or changes in mentation. Psychiatry consulted, discharge planning. Recommendations appreciated. (2) Alcohol dependence Current Visit: Yes Status: Chronic Assessment and plan: Hx of chronic alcohol abuse. Pt. reports he drinks 12-24 beers daily. CIWA scale. 720 mL TIDWM beer ordered. SW consult ordered to assess for rehabilitation needs post-discharge. Thiamine and folic acid supplementation. Will need to do taper patient and discontinue beer. Qualifiers: Substance use status: unspecified alcohol-induced disorder Qualified Code(s ): F10.29 - Alcohol dependence with unspecified alcohol-induced disorder (3) COPD (chronic obstructive pulmonary disease) Current Visit: Yes Status: Chronic Assessment and plan: Hx of chronic COPD w/emphysema. Stable. Supplemental O2 w/titration and SpO2 monitoring. DuoNebs Q6 PRN. Qualifiers: COPD type: emphysema Emphysema type: unspecified Qualified Code(s): J43.9 - Emphysema, unspecified (4) Depression Current Visit: Yes Status: Chronic Assessment and plan: Hx of chronic depression. Pt. reports he does not see provider for his psychiatric needs. Psychiatric consult ordered to assess for post-discharge needs. SW consult ordered for possible rehabilitation. Qualifiers: Depression Type: other depression Qualified Code(s): F32.89 - Other specified depressive episodes (5) Drug abuse and dependence Current Visit: Yes Status: Chronic (6) Hepatitis Current Visit: Yes Status: Chronic (7) DVT prophylaxis Current Visit: Yes Status: Acute - Subjective Interval history: Patient today has complaints of suicidal ideation in the morning but now does not feel that way. He admits to anxiety, denies tremors, restlessness, agitation, diarrhea, abdominal pain. - Constitutional Vitals: Temp Pulse Resp BP Pulse Ox 98.4 F 70 16 111/72 92 06/21/17 11:20 06/21/17 11:20 06/21/17 11:20 06/21/17 11:20 06/21/17 11:20 General appearance: Present: cooperative, A&O X 3, pleasant, no acute distress - Head Head exam: Present: atraumatic, normocephalic - Eye Eye exam: Present: PERRL, conjuntiva pink, sclera anicteric Pupils: Present: PERRL - Neck Neck exam general surgery: Present: supple, trachea midline. Absent: lymphadenopathy - Respiratory Respiratory exam: Present: CTAB. Absent: accessory muscle use, rales, rhonchi, wheezes - Cardiovascular Cardiovascular exam: Present: RRR, +S1, +S2. Absent: diastolic murmur, gallop, rubs, systolic murmur - GI/Abdominal GI/Abdominal exam: Present: normal bowel sounds, soft, no peritoneal signs. Absent: distended, tenderness - Extremities Exam Extremities exam: Present: warm, radial pulses palpable and symmetrical. Absent : calf tenderness, cyanotic, pedal edema - Neurological Exam Neurological exam: Present: CN II-XII intact, oriented X3, no focal deficits. Absent: pronater drift, facial droop, speech deficit - Skin Skin exam: Present: dry, intact Internal Medicine: Result - Labs CBC & Chem 7: 06/21/17 01:07 06/21/17 01:07 Labs: Short CBC 06/21/17 Range/Units 01:07 WBC 4.3 (4.3-11.1) K/mcL Hgb 14.8 (12.9-16.9) g/dL Hct 44.2 (37.5-50.1) % Plt Count 286 (140-400) K/mcL Neutrophils # 1.3 L (1.6-8.9) K/mcL BMP 06/21/17 01:07 Sodium 136 Potassium 4.1 Chloride 106 Carbon Dioxide 26 BUN 11 Creatinine 0.96 Glucose 97 Calcium 8.5 L Cardiac Enzymes 06/21/17 06/21/17 Range/Units 01:07 07:39 Troponin I < 0.03 < 0.03 (< 0.04) ng/mL Liver Function 06/21/17 06/21/17 Range/Units 01:07 01:07 Total Bilirubin 0.4 0.4 (0.3-1.0) mg/dL Direct Bilirubin 0.1 (0.0-0.2) mg/dL AST 66 H 66 H (13-39) Units/L ALT 92 H 93 H (7-52) Units/L Alkaline Phosphatase 83 84 (34-104) Units/L Albumin 3.4 L 3.4 L (3.5-5.7) g/dL - ABG Interpretation ABG results: PT/INR, D-dimer PT 10.3 Seconds (9.4-12.1) 06/20/17 18:06 Consult Discharge Plan - Plan Referrals: NONE,PCP [Primary Care Provider] -
[2017-06-21] MEDS ORDERED: *HR* LORazepam 2 MG/ML VIAL IVP PRN ×3 (16:07)
--- NOTE | 2017-06-21 16:54 | Electrocardiograph Report ---
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
[2017-06-22] MEDS: D5% in 0.9% NACL 1,000 ML IVC SCH ×3 (01:22→23:39)
[2017-06-22] MEDS: Acetaminophen 325 MG TABLET PO PRN (01:26)
[2017-06-22 05:10] LABS: Basophils % 0.6 %; Eosinophils # 0.2 K/mcL (0.0-0.6); Eosinophils % 4.3 %; Hemoglobin 14.5 g/dL (12.9-16.9); Immature Granulocytes % 0.2 % (0-4); Lymphocytes # 2.3 K/mcL (0.6-4.6); Lymphocytes % 49.5 %; Mean Corpuscular Hemoglobin 30.6 pg (28.0-33.3); Mean Corpuscular Volume 92.8 fL (83.0-100.0); Mean Platelet Volume 9.7 fL (9.4-12.4); Monocytes # 0.7 K/mcL (0.0-1.3); Monocytes % 14.5 %; Neutrophils # 1.4 K/mcL (1.6-8.9); Platelet Count 280 K/mcL (140-400); Red Blood Count 4.74 M/mcL (4.19-5.50); Red Cell Distribution Width 12.2 % (11.5-14.5); Segmented Neutrophils % 30.9 %
[2017-06-22 05:34] LABS: Alanine Aminotransferase 91 Units/L (7-52); Albumin 3.2 g/dL (3.5-5.7); Albumin/Globulin Ratio 1.3 (1.1-2.2); Alkaline Phosphatase 80 Units/L (34-104); Aspartate Amino Transferase 58 Units/L (13-39); BUN/Creatinine Ratio 16 (6-26); Bilirubin,Total 0.3 mg/dL (0.3-1.0); Blood Urea Nitrogen 12 mg/dL (6-20); Calcium 8.5 mg/dL (8.6-10.3); Carbon Dioxide 27 mEq/L (23-29); Chloride 109 mEq/L (98-107); Globulin 2.5 g/dL (2.4-3.5); Glucose 122 mg/dL (70-105); Osmolality,Calculated 287 (280-300); Potassium 3.9 mEq/L (3.5-5.1); Sodium 138 mEq/L (136-145); Total Protein 5.7 g/dL (6.4-8.9); eGFR For African Americans > 60 (> 60); eGFR For Non-African Americans > 60 (> 60)
[2017-06-22] MEDS: *HR* Enoxaparin 40 MG/0.4 ML SYRINGE SQ SCH (05:34)
[2017-06-22] MEDS: Beer can PO SCH (09:10)
[2017-06-22] MEDS: Nicotine 14 MG PATCH.TD24 TD SCH (09:39)
--- NOTE | 2017-06-22 17:29 | Internal Med Progress Note ---
Date of Encounter: 06/22/17 Time of Encounter: 17:27 - Assessment and plan (1) Suicidal ideation Current Visit: Yes Status: Acute Assessment and plan: Acute on chronic suicidal ideation. Pt. stated to attending that he was suicidal on admissiony and previously d/t relationship problems. Stated he snorted meth day od admissin and drank 24 oz of beer. Reported trying to shoot up and OD one week ago as well as previously. Reporteds chronic depression. Denied receiving psychiatric help previously or any previous psychiatric hospitalizations. Hx of alcohol abuse (drinks 12-24 beers daily) and illicit drug abuse (cocaine, heroin, and meth). During exam, pt. stated he no longer has suicidal ideations and no homicidal ideation. Stated he would like help. Suicide and seizure precautions. Sitter. D5 in 0.9 NS d/t hypoglycemia. Continuous cardiac telemetry. CIWA scale. 1 mg Ativan Q2 for agitation/withdrawal. Pt. to be monitored closely for signs of depression or changes in mentation. Psychiatry consulted and they will take him on their unit when he is medically stable, (2) Alcohol dependence Current Visit: Yes Status: Chronic Assessment and plan: Hx of chronic alcohol abuse. Pt. reports he drinks 12-24 beers daily. CIWA scale. Beer canceled as patient cannot go to psychiatric esquivel with beer and they want him to be detoxed 720 mL SW consult for rehabilitation needs post-discharge. Thiamine and folic acid supplementation. Qualifiers: Substance use status: unspecified alcohol-induced disorder Qualified Code(s ): F10.29 - Alcohol dependence with unspecified alcohol-induced disorder (3) COPD (chronic obstructive pulmonary disease) Current Visit: Yes Status: Chronic Assessment and plan: Hx of chronic COPD w/emphysema. Stable. Supplemental O2 w/titration and SpO2 monitoring. DuoNebs Q6 PRN. Qualifiers: COPD type: emphysema Emphysema type: unspecified Qualified Code(s): J43.9 - Emphysema, unspecified (4) Depression Current Visit: Yes Status: Chronic Assessment and plan: Hx of chronic depression. Pt. reports he does not see a provider for his psychiatric needs. Psychiatric consulted. SW consult re rehabilitation. Qualifiers: Depression Type: other depression Qualified Code(s): F32.89 - Other specified depressive episodes (5) Drug abuse and dependence Current Visit: Yes Status: Chronic Assessment and plan: Patient utilizes multiple drugs (6) Hepatitis Current Visit: Yes Status: Chronic Assessment and plan: History (7) DVT prophylaxis Current Visit: Yes Status: Acute Assessment and plan: Lovenox - Subjective Interval history: Patient found asleep in the bed, arouses to tactile stimuli. He denies any complaints at this time. He is aware of transfer to the psychiatric unit when he is medically stable. He denies shortness of breath, chest pain, fever, chills, abdominal pain, suicidal ideation at this time - Constitutional Vitals: Temp Pulse Resp BP Pulse Ox 98.9 F 69 17 106/69 97 06/22/17 16:46 06/22/17 16:46 06/22/17 16:46 06/22/17 16:46 06/22/17 16:46 General appearance: Present: cooperative, A&O X 3, pleasant, no acute distress, answers questions appropriately - Head Head exam: Present: atraumatic, normocephalic - Eye Eye exam: Present: PERRL, conjuntiva pink, sclera anicteric Pupils: Present: PERRL - Neck Neck exam general surgery: Present: supple, trachea midline. Absent: lymphadenopathy - Respiratory Respiratory exam: Present: CTAB. Absent: accessory muscle use, rales, rhonchi, wheezes - Cardiovascular Cardiovascular exam: Present: RRR, +S1, +S2. Absent: diastolic murmur, gallop, rubs, systolic murmur - GI/Abdominal GI/Abdominal exam: Present: normal bowel sounds, soft, no peritoneal signs. Absent: distended, tenderness - Extremities Exam Extremities exam: Present: warm, radial pulses palpable and symmetrical. Absent : calf tenderness, cyanotic, pedal edema - Neurological Exam Neurological exam: Present: CN II-XII intact, oriented X3, no focal deficits. Absent: pronater drift, facial droop, speech deficit - Psychiatric Psychiatric exam: Present: depressed. Absent: homicidal ideation, suicidal ideation - Skin Skin exam: Present: dry, intact, warm Additional comments: Multiple tattoos Internal Medicine: Result - Labs CBC & Chem 7: 06/22/17 04:12 06/22/17 04:12 Labs: Short CBC 06/22/17 Range/Units 04:12 WBC 4.6 (4.3-11.1) K/mcL Hgb 14.5 (12.9-16.9) g/dL Hct 44.0 (37.5-50.1) % Plt Count 280 (140-400) K/mcL Neutrophils # 1.4 L (1.6-8.9) K/mcL BMP 06/22/17 04:12 Sodium 138 Potassium 3.9 Chloride 109 H Carbon Dioxide 27 BUN 12 Creatinine 0.75 Glucose 122 H Calcium 8.5 L Liver Function 06/22/17 Range/Units 04:12 Total Bilirubin 0.3 (0.3-1.0) mg/dL AST 58 H (13-39) Units/L ALT 91 H (7-52) Units/L Alkaline Phosphatase 80 (34-104) Units/L Albumin 3.2 L (3.5-5.7) g/dL - ABG Interpretation ABG results: PT/INR, D-dimer PT 10.3 Seconds (9.4-12.1) 06/20/17 18:06 Consult Discharge Plan - Plan Referrals: NONE,PCP [Primary Care Provider] -
[2017-06-22] MEDS: Ondansetron ODT 4 MG TAB.RAPDIS SL PRN (20:04)
[2017-06-22] MEDS: Famotidine 20 MG TABLET PO SCH (20:04)
[2017-06-23 05:43] LABS: Basophils % 0.6 %; Eosinophils # 0.2 K/mcL (0.0-0.6); Eosinophils % 3.9 %; Hematocrit 43.2 % (37.5-50.1); Hemoglobin 14.5 g/dL (12.9-16.9); Immature Granulocytes % 0.3 % (0-4); Immature Platelets 2.5 % (1.1-6.1); Lymphocytes # 2.4 K/mcL (0.6-4.6); Lymphocytes % 37.8 %; Mean Corpuscular HGB Conc 33.6 g/dL (31.6-35.5); Mean Corpuscular Volume 92.5 fL (83.0-100.0); Mean Platelet Volume 9.6 fL (9.4-12.4); Monocytes # 0.8 K/mcL (0.0-1.3); Monocytes % 12.1 %; Neutrophils # 2.8 K/mcL (1.6-8.9); Platelet Count 280 K/mcL (140-400); Red Blood Count 4.67 M/mcL (4.19-5.50); Red Cell Distribution Width 12.2 % (11.5-14.5); Segmented Neutrophils % 45.3 %
[2017-06-23 06:10] LABS: Alanine Aminotransferase 82 Units/L (7-52); Albumin 3.1 g/dL (3.5-5.7); Albumin/Globulin Ratio 1.3 (1.1-2.2); Alkaline Phosphatase 83 Units/L (34-104); Aspartate Amino Transferase 47 Units/L (13-39); BUN/Creatinine Ratio 16 (6-26); Bilirubin,Total 0.3 mg/dL (0.3-1.0); Blood Urea Nitrogen 12 mg/dL (6-20); Carbon Dioxide 26 mEq/L (23-29); Chloride 108 mEq/L (98-107); Globulin 2.4 g/dL (2.4-3.5); Glucose 102 mg/dL (70-105); Osmolality,Calculated 282 (280-300); Potassium 3.9 mEq/L (3.5-5.1); Sodium 136 mEq/L (136-145); Total Protein 5.5 g/dL (6.4-8.9); eGFR For African Americans > 60 (> 60); eGFR For Non-African Americans > 60 (> 60)
[2017-06-23] MEDS: *HR* Enoxaparin 40 MG/0.4 ML SYRINGE SQ SCH (06:12)
[2017-06-23] MEDS: D5% in 0.9% NACL 1,000 ML IVC SCH ×2 (09:35→23:51)
[2017-06-23] MEDS: Famotidine 20 MG TABLET PO SCH ×2 (09:36→21:47)
[2017-06-23] MEDS: Nicotine 14 MG PATCH.TD24 TD SCH (09:36)
[2017-06-23] MEDS ORDERED: diazePAM 10 MG/2 ML SYRINGE IVP PRN ×5 (11:23)
[2017-06-23] MEDS ORDERED: *HR* LORazepam 2 MG/ML VIAL ONE ×3 (12:33→14:14)
[2017-06-23] MEDS ORDERED: Folic Acid 1 MG in D5% in Water 50 ML IVPB STA (12:56)
[2017-06-23] MEDS ORDERED: Thiamine (B-1) 100 MG in D5% in Water 50 ML IVPB SCH (13:00)
[2017-06-23] MEDS ORDERED: Folic Acid 1 MG in 0.9 % Sodium Chloride 50 ML IVPB STA (13:30)
[2017-06-23] MEDS: Ondansetron ODT 4 MG TAB.RAPDIS SL PRN (13:49)
--- NOTE | 2017-06-23 14:36 | Internal Med Progress Note ---
Date of Encounter: 06/23/17 Time of Encounter: 14:26 - Assessment and plan (1) Seizure Current Visit: Yes Status: Acute Assessment and plan: Likely related to alcohol detoxification, 2 episodes today although he is not triggering the CIWA since last evening when it was 15, today he was a 4. Eating breakfast and tolerated well, following commands throughout the morning until the first event was called. Then was awake and asking for lunch after that occurrence. Another event was called about 1438 and he was transferred to ICU I will triple Ativan IV given Cardiac monitoring Pulse oximetry monitoring CT of the head EEG Neurology consult (2) Suicidal ideation Current Visit: Yes Status: Acute Assessment and plan: Acute on chronic suicidal ideation. Pt. stated to attending that he was suicidal on admissiony and previously d/t relationship problems. Stated he snorted meth day od admissin and drank 24 oz of beer. Reported trying to shoot up and OD one week ago as well as previously. Reporteds chronic depression. Denied receiving psychiatric help previously or any previous psychiatric hospitalizations. Hx of alcohol abuse (drinks 12-24 beers daily) and illicit drug abuse (cocaine, heroin, and meth). During exam, pt. stated he no longer has suicidal ideations and no homicidal ideation. Stated he would like help. Suicide and seizure precautions. Sitter. D5 in 0.9 NS d/t hypoglycemia. Continuous cardiac telemetry. CIWA scale. 1 mg Ativan Q2 for agitation/withdrawal. Pt. to be monitored closely for signs of depression or changes in mentation. Psychiatry consulted and they will take him on their unit when he is medically stable Needs to be on oral librium, (3) Alcohol dependence Current Visit: Yes Status: Chronic Assessment and plan: Hx of chronic alcohol abuse. Pt. reports he drinks 12-24 tall beers daily. CIWA scale. Beer canceled as patient cannot go to psychiatric esquivel with beer and they want him to be detoxed SW consulted for rehabilitation needs post-discharge. Thiamine and folic acid supplementation. Qualifiers: Substance use status: unspecified alcohol-induced disorder Qualified Code(s ): F10.29 - Alcohol dependence with unspecified alcohol-induced disorder (4) COPD (chronic obstructive pulmonary disease) Current Visit: Yes Status: Chronic Assessment and plan: Hx of chronic COPD w/emphysema. Stable on admission. Supplemental O2 w/ titration and SpO2 monitoring. DuoNebs Q6 PRN. Qualifiers: COPD type: emphysema Emphysema type: unspecified Qualified Code(s): J43.9 - Emphysema, unspecified (5) Depression Current Visit: Yes Status: Chronic Qualifiers: Depression Type: other depression Qualified Code(s): F32.89 - Other specified depressive episodes (6) Drug abuse and dependence Current Visit: Yes Status: Chronic Assessment and plan: Patient utilizes multiple illegal drugs, urine tox screen positive for amphetamines and alcohol (7) Hepatitis Current Visit: Yes Status: Chronic Assessment and plan: History of with hep C AB screen reactive (8) DVT prophylaxis Current Visit: Yes Status: Acute Assessment and plan: Lovenox subcutaneous - Subjective Interval history: Patient found asleep in the bed on rounds and sister was at bedside at 10:30, he aroused to verbal stimuli. He denied any complaints at that time. He followed commands, he ate breakfast At 12:30 and condition was called for a seizure that lasted 3 minutes he was given Ativan 4 mg total he was responding to commands and his eyes were open. Vital signs were stable blood pressure 110/69 heart rate 99, respirations were 18 and his airway was protected glucose was 132 and he was 96% on room air. Due to bed availability he remained on the floor and continue to see why scale with his last CIWA was 4. At 1330 he was asking for lunch and was awake with no seizure activity noted trembling. At 1415 another seizure was witnessed by the family member and a condition was called. He was given 6 mg of Ativan and was transferred to ICU bed 3. Vital signs were stable at that time as well blood pressure 112/61, 98% on room air heart rate was 105 breast murmurs or snoring and he did not follow commands. At 1420 he was speaking and responding to commands. He was transferred to ICU bed 3 in stabilized condition with no further seizure activity. He T of the head will be obtained as well as normal consult. - Constitutional Vitals: Temp Pulse Resp BP Pulse Ox 98.8 F 84 16 94/59 96 06/23/17 12:00 06/23/17 12:00 06/23/17 12:00 06/23/17 12:00 06/23/17 12:00 General appearance: Present: A&O X 2, no acute distress, answers questions appropriately Exam: Mentation slightly obtunded but follows simple commands and did verbally respond at this time, earlier in the morning he ate breakfast and was able to follow commands and have a conversation. - Head Head exam: Present: atraumatic, normocephalic - Eye Eye exam: Present: PERRL, conjuntiva pink, sclera anicteric Pupils: Present: PERRL - Neck Neck exam general surgery: Present: supple, trachea midline. Absent: lymphadenopathy - Respiratory Respiratory exam: Present: CTAB. Absent: accessory muscle use, rales, rhonchi, wheezes - Cardiovascular Cardiovascular exam: Present: RRR, +S1, +S2. Absent: diastolic murmur, gallop, rubs, systolic murmur - GI/Abdominal GI/Abdominal exam: Present: normal bowel sounds, soft, no peritoneal signs. Absent: distended, tenderness - Extremities Exam Extremities exam: Present: warm, radial pulses palpable and symmetrical. Absent : calf tenderness, cyanotic, pedal edema - Neurological Exam Neurological exam: Present: CN II-XII intact, oriented X3, no focal deficits. Absent: pronater drift, facial droop, speech deficit - Skin Skin exam: Present: dry, intact, warm Internal Medicine: Result - Labs CBC & Chem 7: 06/23/17 05:08 06/23/17 05:08 Labs: Short CBC 06/23/17 Range/Units 05:08 WBC 6.2 (4.3-11.1) K/mcL Hgb 14.5 (12.9-16.9) g/dL Hct 43.2 (37.5-50.1) % Plt Count 280 (140-400) K/mcL Neutrophils # 2.8 (1.6-8.9) K/mcL BMP 06/23/17 05:08 Sodium 136 Potassium 3.9 Chloride 108 H Carbon Dioxide 26 BUN 12 Creatinine 0.75 Glucose 102 Calcium 8.0 L Liver Function 06/23/17 Range/Units 05:08 Total Bilirubin 0.3 (0.3-1.0) mg/dL AST 47 H (13-39) Units/L ALT 82 H (7-52) Units/L Alkaline Phosphatase 83 (34-104) Units/L Albumin 3.1 L (3.5-5.7) g/dL - ABG Interpretation ABG results: PT/INR, D-dimer PT 10.3 Seconds (9.4-12.1) 06/20/17 18:06 Consult Discharge Plan - Plan Referrals: NONE,PCP [Primary Care Provider] -
[2017-06-23 14:59] LABS: Prolactin 10.04 ng/mL (3.00-14.70)
[2017-06-23] MEDS ORDERED: *HR* LORazepam 2 MG/ML VIAL IVP PRN (15:11)
[2017-06-23 15:36] LABS: Magnesium 1.8 mg/dL (1.6-2.6)
--- NOTE | 2017-06-23 15:55 | Event Note ---
Date of Encounter: 06/23/17 Time of Encounter: 14:30 Rapid response note 06/23/2017 Rapid response was called to Mr. Bates room at 1300 where he was found to be lethargic, at that time he had focal movements of his right upper extremity and right lower extremity, he responded to verbal commands able to move all limbs appropriately, opened his eyes and verbally responded appropriately. At that time his heart rate was between 90 and 112, oxygen saturation 96% on room air, blood pressure normotensive. He was given 2 mg Ativan with mild response with decreased in focal seizure activity, given 2 mg more of Ativan with complete resolution of symptoms. Patient was awake and interactive. He was able to stand up at bedside and use the urinal. At that time given that he was admitted with EtOH, opiates and benzo withdrawal symptoms on CIWA protocol and was determined to move him up to a higher intensity coverage. Plans to move into ICU stepdown for further treatment were initiated. Labs collected at that time included prolactin. He was scheduled daily doses of thiamine and dextrose 5%, folic acid. Second rapid response called at 1415 patient be found in full seizure activity with ocular nystagmus. Length of seizure activity was roughly 2 minutes oxygen saturations dropped to 90%, heart rate tachycardic at 112, blood pressure stable at normotensive. Afebrile. Patient required 4 mg IV avid Ativan with resolution of seizure activity. He was given 2 mg IV Ativan prior to transfer to the ICU. Verbal handoff to the student outreach coordinator regarding clinical examination, wrapper response and medications given were discussed.
--- NOTE | 2017-06-23 15:57 | Neurology - Consult Note ---
Date of Encounter: 06/23/17 Time of Encounter: 15:54 Assessment and Plan (1) Seizure Current Visit: Yes Status: Acute Likely related to alcohol withdrawal or use of amphatamine ( UDS positive for amphatamine) although the patient's last drink was on last Wednesday. He has no other risk factors for epilepsy except history of alcohol abuse and IV drug abuse. UDR positive for amphatamine. No significant electrolyte abnormalities, no evidence of infection, no white count. Currently has nonfocal neurological examination. Will get CT of head and routine EEG. At this time, will recommend no antiepileptic therapy, treat breakthrough seizure with ativan prn basis. Please continue medical and supportive care. DT prophylaxis. History of Present Illness Chief complaint: seizures HPI: Mr. Bates is a 32 year old male with PMH significant for alcohol abuse, history of IV drug abuse, chronic hepatitis C who developed recurrent seizures. Initially admitted to psychiatry due to suicidal ideation. his last alcohol drink on Last wednesday. Patient interviewed in the presence of his father and mother. Patient currently sleeping comfortably and finally he woke up but father provided history. He has been drinking rather heavily daily basis, mostly beer, up to a case a day, and may be more. Last drink Last Wednesday. today he developed two episodes of GTC with no tongue biting or urinary incontinence. He was given ativan which is able to break the seizure. Currently in ICU, not intubated and vitals are normal. No prior history of seizures. Has history of IV drug abuse and alcohol abuse. Pending CT of head Past Med Surg Social Fam HX - Past Medical History Medical history: COPD, hepatitis Psychiatric history: no psych history - Social History Smoking Status: Current every day smoker Packs per day: 2 PPD Smokeless Tobacco Status: No Alcohol use: heavy (12-24 beers daily), recent Drug use: cocaine, methamphetamine, other (Heroin) - Family History Father Race: Family Member Ethnicity: Non- Living Status: Still Living Hx Family Cardiac Disorders: Yes Mother Race: Family Member Ethnicity: Non- Living Status: Still Living Hx Family Autoimmune Disorders: Yes (RA) Sister Race: Family Member Ethnicity: Non- Living Status: Still Living Hx Family Medical Disorders: No Medications and Allergies No Known Home Drugs 06/21/17 [History] 3 Allergy/AdvReac Type Severity Reaction Status Date / Time No Known Allergies Allergy Verified 06/21/17 10:23 All Systems: A 10-system review of systems was performed and is negative for pertinent findings except as documented above in the HPI. Physical Examination - Vital Signs Vital Signs: Initial Vital Signs Temp Pulse Resp BP Pulse Ox 98.3 F 90 18 115/77 99 06/20/17 14:50 06/20/17 14:50 06/20/17 14:50 06/20/17 14:50 06/20/17 14:50 - Constitutional General appearance: comfortable - Neurologic Sensorimotor examination: other (Unable to assess due to altered mental status) Detailed motor examination: grossly full strength in all extremities Detailed sensory examination: other (Unable to assess due to altered mental status) Posture: other (None) Reflex and gait examination: other (Intact) Reflexes: Biceps: 2+, Triceps: 2+, Brachioradialis: 2+, Patella: 2+, Achilles: 2 + Mental Status Examination: lethargic (Patient was sleeping initially but aroused later and was yawning. Still somewhat altered but no significant discomforts), opens eyes to voice, follows simple commands Cranial nerve examination: PERRL, EOMI, visual contreras intact, corneal reflexes brisk symmetrically, sensory to face intact, mastication intact, no facial asymmetry is present, no dysarthria, hearing is intact symmetrically, soft palate elevates bilaterally upon phonation, gag reflex intact, flexes SCM and trapezius muscles symmetrically with full power, tongue protrudes midline, no atrophy or facial fasiculations present Results - Laboratory Findings CBC and BMP: 06/23/17 05:08 06/23/17 05:08 Abnormal lab findings: Abnormal lab results Chloride 108 mEq/L (98-107) H 06/23/17 05:08 POC Glucose 107 (58-89) H 06/22/17 14:28 Calcium 8.0 mg/dL (8.6-10.3) L 06/23/17 05:08 AST 47 Units/L (13-39) H 06/23/17 05:08 ALT 82 Units/L (7-52) H 06/23/17 05:08 Serum Total Protein 5.5 g/dL (6.4-8.9) L 06/23/17 05:08 Albumin 3.1 g/dL (3.5-5.7) L 06/23/17 05:08 Salicylates < 5.0 mg/dL (15.0-30.0) L 06/20/17 15:10 Acetaminophen < 1.0 mcg/mL (10-30) L 06/20/17 15:10 Ur Amphetamines Screen Positive ng/mL ([id number]) H 06/20/17 15:10 Hepatitis C Ab Screen Reactive (Nonreactive) H 06/21/17 01:07 Consult Discharge Plan - Plan Referrals: NONE,PCP [Primary Care Provider] -
--- NOTE | 2017-06-23 15:58 | Pulmonology Consult Note ---
<Pernell Nix - Last Filed: 06/23/17 16:11> Date of Encounter: 06/23/17 Time of Encounter: 15:55 Assessment and Plan (1) Seizure Current Visit: Yes Status: Acute Seizures are likely associated with alcohol withdrawal. He responded to 4 mg of IV Ativan initially. In addition he received an additional 2 mg Ativan prior to coming out of the seizure completely. He was alert and oriented after seizures. We will continue the patient on alcohol withdrawal prophylaxis. The patient has scheduled Valium as well as when necessary Ativan. We will continue to monitor the patient's mental status. A head CT will also be performed to rule out any acute etiology of the patient's decline in mental status and seizure like activity that were initially visualized on the floor. Neurology is consulted per primary team, hospitalist. (2) Alcohol dependence Current Visit: Yes Status: Chronic Patient drink roughly 24 beers per day in addition to utilizes heroin, cocaine, methamphetamines. Qualifiers: Substance use status: unspecified alcohol-induced disorder Qualified Code(s ): F10.29 - Alcohol dependence with unspecified alcohol-induced disorder (3) Drug abuse and dependence Current Visit: Yes Status: Chronic (4) Suicidal ideation Current Visit: Yes Status: Acute This was noted from the emergency medicine note and upon H&P upon arrival. The patient has had a psychiatric evaluation and is apparently due to be admitted to our psychiatric team. (5) COPD (chronic obstructive pulmonary disease) Current Visit: Yes Status: Chronic We will continue to monitor patient's respiratory status. Qualifiers: COPD type: emphysema Emphysema type: unspecified Qualified Code(s): J43.9 - Emphysema, unspecified (6) Hepatitis Current Visit: Yes Status: Chronic History of Present Illness Consult date: 06/23/17 Requesting physician: Soila Velazquez Reason for consult: other (Alcohol withdrawal, seizure) Chief complaint: Alcohol withdrawal, seizure History of present illness: 32-year-old male with history of polysubstance abuse including alcohol, methamphetamines, cocaine, heroin arrives to air him see with complaint of suicidal ideation. Due to intoxication and alteration in mentation patient was subsequently admitted to the hospital. He was being evaluated by psychiatric services for likely admission due to suicidal ideation prior to arrival to the hospital as well as previous suicide attempt 1 week ago by shooting up heroin. The patient admits to drinking roughly 24 beers per day as well as snorting methamphetamine and utilizing heroin. The patient was on the floor with Librium ordered for alcohol withdrawal prevention. A rapid response was called on the patient at roughly 1 PM this afternoon and the patient was noted to be seizing. He was given 4 mg of IV Ativan which stopped his seizing. The patient was immediately responsive and following commands. Roughly 1.5 hours later another rapid response was called and the patient underwent another seizure. At this time the patient was in an apparent tonic-clonic seizure that was generalized. The patient was administered 6 mg of Ativan which brought him out of seizure-like activity. He was slightly sluggish and slow to respond. He began following commands soon after. The patient was subsequently brought to the intensive care unit for further observation and care. Upon arrival to the ICU the patient is following commands and answering all questions appropriately. He is able to move from one bed to the other transition without difficulty. The patient is currently having one-on-one sitter. Past Med Surg Social Fam HX - Past Medical History Source: old records reviewed Medical history: COPD, hepatitis Psychiatric history: no psych history - Past Surgical History Surgical History: no surgical history - Social History Smoking Status: Current every day smoker Packs per day: 2 PPD Smokeless Tobacco Status: No Alcohol use: heavy (12-24 beers daily), recent Drug use: cocaine, methamphetamine, IV Drug Use, other (Heroin) - Family History Father Race: Family Member Ethnicity: Non- Living Status: Still Living Hx Family Cardiac Disorders: Yes Mother Race: Family Member Ethnicity: Non- Living Status: Still Living Hx Family Autoimmune Disorders: Yes (RA) Sister Race: Family Member Ethnicity: Non- Living Status: Still Living Hx Family Medical Disorders: No Medications and Allergies No Known Home Drugs 06/21/17 [History] 3 Allergy/AdvReac Type Severity Reaction Status Date / Time No Known Allergies Allergy Verified 06/21/17 10:23 All Systems: A 10-system review of systems was performed and is negative for pertinent findings except as documented above in the HPI. - Constitutional Constitutional: weakness - EENT Eyes: no loss of vision Nose, mouth and throat: no dry mouth, no dysphagia - Cardiovascular Cardiovascular: no chest pain, no dyspnea - Respiratory Respiratory: no cough, no dyspnea - Gastrointestinal Gastrointestinal: no abdominal pain, no nausea - Neurological Neurological: convulsions, no focal weakness, no vertigo Physical Examination Vital Signs: Vital Signs, Last 4 Hours Temp Pulse Resp BP Pulse Ox 06/23/17 14:53 93 06/23/17 14:34 98.3 F 93 28 112/71 96 06/23/17 12:00 98.8 F 84 16 94/59 96 General appearance: no acute distress Eyes: nonicteric ENT: oropharynx moist Effort: normal Auscultation: bilateral: clear Cardiovascular: regular rate and rhythm Gastrointestinal: soft, non-distended Extremities: no cyanosis, no edema, no clubbing Musculoskeletal: no deformities normal mental status, non-focal exam, pupils equal and round, CN II-XII normal, motor strength normal and symmetric Results - Laboratory Findings CBC and BMP: 06/23/17 05:08 06/23/17 05:08 PT/INR, D-dimer PT 10.3 Seconds (9.4-12.1) 06/20/17 18:06 Abnormal lab findings: Abnormal lab results Chloride 108 mEq/L (98-107) H 06/23/17 05:08 POC Glucose 107 (58-89) H 06/22/17 14:28 Calcium 8.0 mg/dL (8.6-10.3) L 06/23/17 05:08 AST 47 Units/L (13-39) H 06/23/17 05:08 ALT 82 Units/L (7-52) H 06/23/17 05:08 Serum Total Protein 5.5 g/dL (6.4-8.9) L 06/23/17 05:08 Albumin 3.1 g/dL (3.5-5.7) L 06/23/17 05:08 Salicylates < 5.0 mg/dL (15.0-30.0) L 06/20/17 15:10 Acetaminophen < 1.0 mcg/mL (10-30) L 06/20/17 15:10 Ur Amphetamines Screen Positive ng/mL (Dpbvun=0965) H 06/20/17 15:10 Hepatitis C Ab Screen Reactive (Nonreactive) H 06/21/17 01:07 - Clinical Findings Intake & Output: Intake & Output 06/22/17 06/23/17 06/23/17 23:59 07:59 15:59 Intake Total 1120 / 1120 1120 / 1120 Output Total 110 / 110 Balance 1010 / 1010 1120 / 1120 Weight 68.674 kg Consult Discharge Plan - Plan Referrals: NONE,PCP [Primary Care Provider] - - Attending Attestation I examined this patient and my medical decision-making was reviewed with the Resident Physician. I agree with the documented findings, disposition and treatment plan as described except to the extent set forth below. <Moi Greenfield W - Last Filed: 06/23/17 16:20> Date of Encounter: 06/23/17 All Systems: A 10-system review of systems was performed and is negative for pertinent findings except as documented above in the HPI. Physical Examination Vital Signs: Vital Signs, Last 4 Hours Temp Pulse Resp BP Pulse Ox 06/23/17 14:53 93 06/23/17 14:34 98.3 F 93 28 112/71 96 Results - Laboratory Findings CBC and BMP: 06/23/17 05:08 06/23/17 05:08 PT/INR, D-dimer PT 10.3 Seconds (9.4-12.1) 06/20/17 18:06 Abnormal lab findings: Abnormal lab results Chloride 108 mEq/L (98-107) H 06/23/17 05:08 POC Glucose 107 (58-89) H 06/22/17 14:28 Calcium 8.0 mg/dL (8.6-10.3) L 06/23/17 05:08 AST 47 Units/L (13-39) H 06/23/17 05:08 ALT 82 Units/L (7-52) H 06/23/17 05:08 Serum Total Protein 5.5 g/dL (6.4-8.9) L 06/23/17 05:08 Albumin 3.1 g/dL (3.5-5.7) L 06/23/17 05:08 Salicylates < 5.0 mg/dL (15.0-30.0) L 06/20/17 15:10 Acetaminophen < 1.0 mcg/mL (10-30) L 06/20/17 15:10 Ur Amphetamines Screen Positive ng/mL (Bwssiw=[id number]) H 06/20/17 15:10 Hepatitis C Ab Screen Reactive (Nonreactive) H 06/21/17 01:07 - Clinical Findings Intake & Output: Intake & Output 06/23/17 06/23/17 06/23/17 07:59 15:59 23:59 Intake Total 1120 / 1120 Balance 1120 / 1120 Weight 68.674 kg - Attending Attestation I examined this patient and my medical decision-making was reviewed with the Resident Physician. I agree with the documented findings, disposition and treatment plan as described except to the extent set forth below. We independently had [id number] contact with the patient Patient seen and examined at bedside Labs, radiology, chart personally reviewed. Impression/Recs: Seizure likely secondary to EtOH withdrawal: -Trend electrolytes and replace as needed -head CT head pending; -neurology following -schedule benzodiazepines -CIWA protocol; -continue vitamin support Substance abuse-undergoing detoxification he is a user of amphetamines Suicidal ideation evaluated by psychiatry with plans for inpatient evaluation after medical clearance DVT prophylaxis
[2017-06-23] MEDS: Thiamine (B-1) 100 MG in 0.9 % Sodium Chloride 50 ML IVPB SCH (16:26)
[2017-06-23] MEDS: diazePAM 10 MG/2 ML SYRINGE IVP SCH ×2 (17:27→23:51)
[2017-06-24] MEDS: *HR* LORazepam 2 MG/ML VIAL IVP PRN ×3 (00:59→20:35)
[2017-06-24] MEDS: diazePAM 10 MG/2 ML SYRINGE IVP SCH (01:00)
[2017-06-24 04:46] LABS: Basophils % 0.5 %; Eosinophils # 0.2 K/mcL (0.0-0.6); Eosinophils % 2.8 %; Hematocrit 42.7 % (37.5-50.1); Hemoglobin 14.7 g/dL (12.9-16.9); Immature Granulocytes % 0.3 % (0-4); Lymphocytes # 2.3 K/mcL (0.6-4.6); Lymphocytes % 31.3 %; Mean Corpuscular HGB Conc 34.4 g/dL (31.6-35.5); Mean Corpuscular Hemoglobin 31.3 pg (28.0-33.3); Mean Corpuscular Volume 90.9 fL (83.0-100.0); Mean Platelet Volume 9.2 fL (9.4-12.4); Monocytes # 0.9 K/mcL (0.0-1.3); Monocytes % 11.4 %; Platelet Count 250 K/mcL (140-400); Red Cell Distribution Width 12.1 % (11.5-14.5); Segmented Neutrophils % 53.7 %
[2017-06-24 05:08] LABS: BUN/Creatinine Ratio 12 (6-26); Blood Urea Nitrogen 9 mg/dL (6-20); Calcium 8.3 mg/dL (8.6-10.3); Carbon Dioxide 26 mEq/L (23-29); Chloride 107 mEq/L (98-107); Glucose 95 mg/dL (70-105); Magnesium 2.1 mg/dL (1.6-2.6); Osmolality,Calculated 280 (280-300); Potassium 4.1 mEq/L (3.5-5.1); Sodium 136 mEq/L (136-145); eGFR For African Americans > 60 (> 60); eGFR For Non-African Americans > 60 (> 60)
[2017-06-24] MEDS: *HR* Enoxaparin 40 MG/0.4 ML SYRINGE SQ SCH (05:22)
[2017-06-24] MEDS: Nicotine 14 MG PATCH.TD24 TD SCH (08:14)
[2017-06-24] MEDS: Thiamine (B-1) 100 MG in 0.9 % Sodium Chloride 50 ML IVPB SCH (08:14)
[2017-06-24] MEDS: Famotidine 20 MG TABLET PO SCH ×2 (08:15→21:48)
[2017-06-24] MEDS ORDERED: Ketorolac 30 MG/ML VIAL IVP PRN (10:22)
--- NOTE | 2017-06-24 14:39 | EEG/EMG/Oth Biometrics Report ---
EEG Procedure Report Date of procedure: 06/24/17 EEG Procedure: Routine EEG Procedure Note: This EEG was acquired with standard international 10-20 system with EKG recording. The background EEG activity was characterized by the presence of diffusely fast activity with frequency around 14-16 Hz. The background activity was reactive to eye openings. Sleep stages were not identified during this tracing. Drowsiness was characterized by drop off of posterior dominant fast rhythm. There are no electrographic seizures identified during this tracing. There are no epileptiform discharges and focal slowing noted during this recording. Photic stimulation and hyperventilation produced and produced no abnormalities. EKG tracing showed no significant cardiac dysrhythmia. Extensive beta activity seen diffusely during the study. Impression: This is essentially a normal awake and drowsy EEG. Extensive beta can be the results of medication effects including those from benzo and phenobarbital. Clinical Correlation: Normal EEGs, however, do not exclude epilepsy. Clinical correlation is advised.
--- NOTE | 2017-06-24 15:57 | Internal Med Progress Note ---
Date of Encounter: 06/24/17 Time of Encounter: 10:45 - Assessment and plan (1) Alcohol withdrawal seizure Current Visit: Yes Status: Acute Assessment and plan: Patient developed seizures yesterday. Likely from alcohol withdrawal. Has not had any episodes of seizures since yesterday evening. Continue Ativan as needed for seizures. Will place patient back on oral Librium for better control of alcohol withdrawal symptoms. Qualifiers: Complication of substance-induced condition: with unspecified complication Qualified Code(s): F10.239 - Alcohol dependence with withdrawal, unspecified; R56.9 - Unspecified convulsions; R56.9 - Unspecified convulsions; R56.9 - Unspecified convulsions; R56.9 - Unspecified convulsions (2) Alcohol withdrawal Current Visit: Yes Status: Acute Assessment and plan: With acute seizures yesterday. Continue management as above Qualifiers: Complication of substance-induced condition: with unspecified complication Qualified Code(s): F10.239 - Alcohol dependence with withdrawal, unspecified (3) Seizure Current Visit: Yes Status: Acute Assessment and plan: From alcohol withdrawal. EEG is negative for epileptic activity. Neurology consult appreciated. (4) Suicidal ideation Current Visit: Yes Status: Acute Assessment and plan: Continues to have suicidal ideation. Will consult psychiatric prior to discharge for possible admission to the adult inpatient psychiatric unit. (5) Alcohol dependence Current Visit: Yes Status: Chronic Assessment and plan: Continue supportive care. Continue to monitor for withdrawal. On thiamine. Qualifiers: Substance use status: unspecified alcohol-induced disorder Qualified Code(s ): F10.29 - Alcohol dependence with unspecified alcohol-induced disorder (6) COPD (chronic obstructive pulmonary disease) Current Visit: Yes Status: Chronic Assessment and plan: Not in acute exacerbation. Continue bronchodilators as needed Qualifiers: COPD type: emphysema Emphysema type: unspecified Qualified Code(s): J43.9 - Emphysema, unspecified (7) Drug abuse and dependence Current Visit: Yes Status: Chronic (8) DVT prophylaxis Current Visit: Yes Status: Acute Assessment and plan: With Lovenox. - Subjective Interval history: Patient is awake and alert. No new seizure episodes since yesterday evening. Did score high on the CIWA protocol and this morning and received Ativan. Complaints of generalized body aches. Tolerating diet well. No hallucinations. Does continue to report thoughts of harming himself - Constitutional Vitals: Temp Pulse Resp BP Pulse Ox 97.7 F 108 17 115/69 97 06/24/17 11:13 06/24/17 15:03 06/24/17 11:13 06/24/17 15:03 06/24/17 15:03 General appearance: Present: A&O X 3, no acute distress, answers questions appropriately - Neck Neck exam general surgery: Present: supple, trachea midline. Absent: lymphadenopathy - Cardiovascular Cardiovascular exam: Present: RRR, +S1, +S2. Absent: diastolic murmur, gallop, rubs, systolic murmur - GI/Abdominal GI/Abdominal exam: Present: normal bowel sounds, soft, no peritoneal signs. Absent: distended, tenderness - Extremities Exam Extremities exam: Present: warm, radial pulses palpable and symmetrical. Absent : calf tenderness, cyanotic, pedal edema - Neurological Exam Neurological exam: Present: CN II-XII intact, oriented X3, no focal deficits. Absent: facial droop, speech deficit Additional comments: No tremors - Psychiatric Psychiatric exam: Present: flat affect, suicidal ideation Internal Medicine: Result - Labs CBC & Chem 7: 06/24/17 04:36 06/24/17 04:36 - ABG Interpretation ABG results: PT/INR, D-dimer PT 10.3 Seconds (9.4-12.1) 06/20/17 18:06 Consult Discharge Plan - Plan Referrals: NONE,PCP [Primary Care Provider] -
--- NOTE | 2017-06-24 17:16 | Neurology Progress Note ---
Date of Encounter: 06/24/17 Time of Encounter: 17:13 Assessment and Plan (1) Seizure Current Visit: Yes Status: Acute Likely related to alcohol withdrawal or use of amphatamine ( UDS positive for amphatamine) although the patient's last drink was on last Wednesday. He has no other risk factors for epilepsy except history of alcohol abuse and IV drug abuse. UDR positive for amphatamine. No significant electrolyte abnormalities, no evidence of infection, no white count. CT normal so as routine EEG. Recurrent episodes of shaking likely non epileptic in etiology. Will not recommend antiepileptic therapy. Will sign off at this time. Please call if any questions. Subjective Principal diagnosis: seizure like activity Interval history: Patient seen and examined. He just woke up and says that he slept whole day. Denies any discomforts. Sitter reports that he still has the 'seizure' episode as before and says that he has 'not real shaking but shaking' almost like tremulous movement in his arms and hands. Patient does not have any recollection of the event. No tongue biting or urinary incontinence reported. EEG reviewed and showed normal EEG activity with extensive beta activity likely the results of use of benzodiazepam. CT/CT head/brain wo con IMPRESSION: No evidence of acute intracranial abnormality. In light of reported clinical history of seizure, follow-up MRI examination may be helpful for more complete evaluation. Objective - Constitutional Vitals: Temp Pulse Resp BP Pulse Ox 97.7 F 108 17 115/69 97 06/24/17 11:13 06/24/17 15:03 06/24/17 11:13 06/24/17 15:03 06/24/17 15:03 - Neurological Exam Sensorimotor examination: Present: other (Unable to assess due to altered mental status) Motor Examination: Present: grossly full strength in all extremities Motor examination - right side: 5/5: deltoids, biceps, triceps, wrist flexion, wrist extension, goggles assembler, hip flexors, tibialis Anterior, quadriceps, toe extension (EHL), plantarflexion Motor examination - left side: 5/5: deltoids, biceps, triceps, wrist flexion, wrist extension, hip flexors, goggles assembler, quadriceps, tibialis Anterior, toe extension (EHL), plantarflexion Sensation intact: Present: intact, other Posture: Present: other (None) Reflex and gait examination: other (Intact) Reflexes: Biceps: 2+, Triceps: 2+, Brachioradialis: 2+, Patella: 2+, Achilles: 2 + Mental Status Examination: Present: awake, alert, oriented to person, oriented to place, oriented to time, follows commands appropriately, answers questions appropriately, no agnosia, no aphasia, no aproxia Cranial nerve examination: Present: PERRL, EOMI, visual contreras intact, corneal reflexes brisk symmetrically, sensory to face intact, mastication intact, no facial asymmetry is present, no dysarthria, hearing is intact symmetrically, soft palate elevates bilaterally upon phonation, gag reflex intact, flexes SCM and trapezius muscles symmetrically with full power, tongue protrudes midline, no atrophy or facial fasiculations present Results - Laboratory Findings CBC and BMP: 06/24/17 04:36 06/24/17 04:36 Abnormal lab findings: Abnormal lab results MPV 9.2 fL (9.4-12.4) L 06/24/17 04:36 POC Glucose 108 (58-89) H 06/24/17 01:05 Calcium 8.3 mg/dL (8.6-10.3) L 06/24/17 04:36 AST 47 Units/L (13-39) H 06/23/17 05:08 ALT 82 Units/L (7-52) H 06/23/17 05:08 Serum Total Protein 5.5 g/dL (6.4-8.9) L 06/23/17 05:08 Albumin 3.1 g/dL (3.5-5.7) L 06/23/17 05:08 Salicylates < 5.0 mg/dL (15.0-30.0) L 06/20/17 15:10 Acetaminophen < 1.0 mcg/mL (10-30) L 06/20/17 15:10 Ur Amphetamines Screen Positive ng/mL ([id number]=[id number]) H 06/20/17 15:10 Hepatitis C Ab Screen Reactive (Nonreactive) H 06/21/17 01:07 Consult Discharge Plan - Plan Referrals: NONE,PCP [Primary Care Provider] -
[2017-06-24] MEDS: Ondansetron ODT 4 MG TAB.RAPDIS SL PRN (21:45)
[2017-06-25 04:15] LABS: Basophils % 0.6 %; Eosinophils # 0.2 K/mcL (0.0-0.6); Eosinophils % 3.2 %; Hematocrit 40.4 % (37.5-50.1); Hemoglobin 13.8 g/dL (12.9-16.9); Immature Granulocytes % 0.4 % (0-4); Lymphocytes # 2.5 K/mcL (0.6-4.6); Lymphocytes % 35.2 %; Mean Corpuscular HGB Conc 34.2 g/dL (31.6-35.5); Mean Corpuscular Hemoglobin 31.4 pg (28.0-33.3); Mean Corpuscular Volume 91.8 fL (83.0-100.0); Mean Platelet Volume 9.4 fL (9.4-12.4); Monocytes # 0.9 K/mcL (0.0-1.3); Neutrophils # 3.3 K/mcL (1.6-8.9); Platelet Count 255 K/mcL (140-400); Red Cell Distribution Width 12.3 % (11.5-14.5); Segmented Neutrophils % 47.6 %
[2017-06-25 04:47] LABS: BUN/Creatinine Ratio 17 (6-26); Blood Urea Nitrogen 14 mg/dL (6-20); Calcium 8.3 mg/dL (8.6-10.3); Carbon Dioxide 25 mEq/L (23-29); Chloride 112 mEq/L (98-107); Glucose 100 mg/dL (70-105); Magnesium 1.9 mg/dL (1.6-2.6); Osmolality,Calculated 295 (280-300); Potassium 3.9 mEq/L (3.5-5.1); Sodium 142 mEq/L (136-145); eGFR For African Americans > 60 (> 60); eGFR For Non-African Americans > 60 (> 60)
[2017-06-25] MEDS: *HR* Enoxaparin 40 MG/0.4 ML SYRINGE SQ SCH (05:44)
[2017-06-25] MEDS: Thiamine (B-1) 100 MG TABLET PO SCH (08:02)
[2017-06-25] MEDS: Nicotine 14 MG PATCH.TD24 TD SCH (08:02)
[2017-06-25] MEDS: Famotidine 20 MG TABLET PO SCH (08:02)
[2017-06-25] MEDS: Nicotine 21 MG PATCH.TD24 TD SCH ×2 (10:16→17:27)
[2017-06-25] MEDS ORDERED: *HR* LORazepam 2 MG/ML VIAL ONE ×3 (11:31→11:54)
[2017-06-25] MEDS ORDERED: *HR* LORazepam 2 MG/ML VIAL IVP PRN ×2 (11:57→13:32)
[2017-06-25] MEDS ORDERED: levETIRAcetam 1,000 MG in 0.9 % Sodium Chloride 100 ML IVPB ONE (12:07)
[2017-06-25] MEDS ORDERED: *HR* LORazepam 2 MG/ML VIAL IVP SCH (12:15)
[2017-06-25] MEDS ORDERED: diazePAM 2 MG TABLET PO SCH (15:00)
--- NOTE | 2017-06-25 16:12 | Internal Med Progress Note ---
Date of Encounter: 06/25/17 Time of Encounter: 12:00 - Assessment and plan (1) Alcohol withdrawal seizure Current Visit: Yes Status: Acute Assessment and plan: Patient having episodes of seizures. Due to alcohol withdrawal versus benzodiazepine withdrawal. Patient received Ativan last night but has not received any Ativan. He had seizures. He did receive Librium. He had an episode of seizure yesterday afternoon which was treated with Ativan. We will continue to monitor closely. High risk for complications. Critical care time 35 min Qualifiers: Complication of substance-induced condition: with unspecified complication Qualified Code(s): F10.239 - Alcohol dependence with withdrawal, unspecified; R56.9 - Unspecified convulsions; R56.9 - Unspecified convulsions; R56.9 - Unspecified convulsions; R56.9 - Unspecified convulsions (2) Alcohol withdrawal Current Visit: Yes Status: Acute Assessment and plan: Patient continued to have seizures. We will continue supportive care. Continue to monitor per [facility] protocol. Qualifiers: Complication of substance-induced condition: with unspecified complication Qualified Code(s): F10.239 - Alcohol dependence with withdrawal, unspecified (3) Seizure Current Visit: Yes Status: Acute (4) Suicidal ideation Current Visit: Yes Status: Acute Assessment and plan: Evaluated by psychiatric. Recommended admission to psychiatric unit once acute medical problems have been treated. (5) Alcohol dependence Current Visit: Yes Status: Chronic Assessment and plan: With alcohol withdrawal seizures. Management as above. Continue supportive care. On thiamine Qualifiers: Substance use status: unspecified alcohol-induced disorder Qualified Code(s ): F10.29 - Alcohol dependence with unspecified alcohol-induced disorder (6) COPD (chronic obstructive pulmonary disease) Current Visit: Yes Status: Chronic Assessment and plan: Use bronchodilators as needed. Not in acute exacerbation. Qualifiers: COPD type: emphysema Emphysema type: unspecified Qualified Code(s): J43.9 - Emphysema, unspecified (7) Drug abuse and dependence Current Visit: Yes Status: Chronic (8) DVT prophylaxis Current Visit: Yes Status: Acute Assessment and plan: On Lovenox. - Subjective Interval history: Patient was doing well this morning but h has had multiple episodes of acute seizures ad acute episodes of seizures since 11:35 AM. Received multiple doses of Ativan and also received a dose of Valium. Neurology was consulted and arrived at bedside. Recommended starting patient on Keppra. Patient will continue to be monitored closely. - Constitutional Vitals: Temp Pulse Resp BP Pulse Ox 98.6 F 78 16 114/65 95 06/25/17 11:45 06/25/17 11:45 06/25/17 11:45 06/25/17 11:45 06/25/17 11:45 General appearance: Present: A&O X 3, no acute distress, answers questions appropriately - Respiratory Respiratory exam: Present: CTAB. Absent: accessory muscle use, rales, rhonchi, wheezes - Cardiovascular Cardiovascular exam: Present: RRR, +S1, +S2. Absent: diastolic murmur, gallop, rubs, systolic murmur - Neurological Exam Neurological exam: Present: CN II-XII intact, no focal deficits. Absent: facial droop, speech deficit Additional comments: Postictal. Tonic-clonic seizures. - Skin Skin exam: Present: dry, intact Internal Medicine: Result - Labs CBC & Chem 7: 06/25/17 03:52 06/25/17 03:52 Labs: Short CBC 06/25/17 Range/Units 03:52 WBC 7.0 (4.3-11.1) K/mcL Hgb 13.8 (12.9-16.9) g/dL Hct 40.4 (37.5-50.1) % Plt Count 255 (140-400) K/mcL Neutrophils # 3.3 (1.6-8.9) K/mcL BMP 06/25/17 03:52 Sodium 142 Potassium 3.9 Chloride 112 H Carbon Dioxide 25 BUN 14 Creatinine 0.81 Glucose 100 Calcium 8.3 L - ABG Interpretation ABG results: PT/INR, D-dimer PT 10.3 Seconds (9.4-12.1) 06/20/17 18:06 Consult Discharge Plan - Plan Referrals: NONE,PCP [Primary Care Provider] -
[2017-06-25] MEDS: *HR* LORazepam 2 MG/ML VIAL IVP PRN ×4 (17:15→23:40)
[2017-06-26] MEDS: *HR* LORazepam 2 MG/ML VIAL IVP PRN ×8 (02:20→23:51)
[2017-06-26] MEDS: *HR* Enoxaparin 40 MG/0.4 ML SYRINGE SQ SCH (06:17)
[2017-06-26 06:46] LABS: Basophils % 0.4 %; Eosinophils # 0.2 K/mcL (0.0-0.6); Hematocrit 42.3 % (37.5-50.1); Hemoglobin 14.4 g/dL (12.9-16.9); Immature Granulocytes % 0.4 % (0-4); Lymphocytes % 27.5 %; Mean Corpuscular Volume 91.2 fL (83.0-100.0); Mean Platelet Volume 9.3 fL (9.4-12.4); Monocytes # 0.9 K/mcL (0.0-1.3); Monocytes % 12.7 %; Neutrophils # 4.1 K/mcL (1.6-8.9); Platelet Count 258 K/mcL (140-400); Red Blood Count 4.64 M/mcL (4.19-5.50); Red Cell Distribution Width 12.1 % (11.5-14.5)
[2017-06-26 06:58] LABS: BUN/Creatinine Ratio 14 (6-26); Blood Urea Nitrogen 11 mg/dL (6-20); Calcium 8.5 mg/dL (8.6-10.3); Carbon Dioxide 27 mEq/L (23-29); Chloride 104 mEq/L (98-107); Glucose 92 mg/dL (70-105); Magnesium 1.8 mg/dL (1.6-2.6); Osmolality,Calculated 281 (280-300); Potassium 3.8 mEq/L (3.5-5.1); Sodium 136 mEq/L (136-145); eGFR For African Americans > 60 (> 60); eGFR For Non-African Americans > 60 (> 60)
[2017-06-26] MEDS: Nicotine 21 MG PATCH.TD24 TD SCH (08:41)
[2017-06-26] MEDS: Thiamine (B-1) 100 MG TABLET PO SCH (08:42)
--- NOTE | 2017-06-26 11:20 | Neurology - Consult Note ---
Date of Encounter: 06/25/17 Time of Encounter: 10:50 Assessment and Plan (1) Seizure Current Visit: Yes Status: Acute This patient was admitted earlier. Multiple seizures thought due to withdrawal. As per family history not abusing multiple substances including some of them probably not been showing up on toxicology screening. Certainly those could be playing a role in his symptoms. Beside withdrawal those medications especially certain stimulants can cause seizure activity. As he did have multiple generalized tonic-clonic spells and I seem to be in a postictal state I would recommend that he should treat him with anticonvulsant medication suggested starting him on Keppra 500 mg stat and continue him on 500 mg twice a day. Continue him on withdrawal precautions with Librium and thiamine. The a lot of substance abuse it involved most of them probably not been showing up in routine toxicology screening. He should be monitored for withdrawal symptoms. Certainly need follow-up with psychiatric services as well Discussed with the primary team as well as patient's family who is at the bedside (2) Alcohol withdrawal seizure Current Visit: Yes Status: Acute Qualifiers: Complication of substance-induced condition: with unspecified complication Qualified Code(s): F10.239 - Alcohol dependence with withdrawal, unspecified; R56.9 - Unspecified convulsions; R56.9 - Unspecified convulsions; R56.9 - Unspecified convulsions; R56.9 - Unspecified convulsions History of Present Illness HPI: Mr. Bates is a 32 year old male seen in consultation today because of increasing seizures. Services will be consulted because patient was admitted earlier and there was a concern of the seizure but workup including EEG was negative as was thought that his seizures were likely related to alcoholic withdrawal. He has been treated with thiamine and is on withdrawal precautions and medications. But apparently he had multiple generalized tonic-clonic convergence of neurology services been reconsulted. Patient did have a seizure earlier and on current examination he seems to be in postictal state currently is not responding to any verbal or physical stimuli Past Med Surg Social Fam HX - Past Medical History Medical history: COPD, hepatitis Psychiatric history: no psych history - Past Surgical History Surgical History: no surgical history - Social History Smoking Status: Current every day smoker Packs per day: 2 PPD Smokeless Tobacco Status: No Alcohol use: heavy (12-24 beers daily), recent Drug use: cocaine, methamphetamine, IV Drug Use, other (Heroin) - Family History Father Race: Family Member Ethnicity: Non- Living Status: Still Living Hx Family Cardiac Disorders: Yes Mother Race: Family Member Ethnicity: Non- Living Status: Still Living Hx Family Autoimmune Disorders: Yes (RA) Sister Race: Family Member Ethnicity: Non- Living Status: Still Living Hx Family Medical Disorders: No Medications and Allergies No Known Home Drugs 06/21/17 [History] 3 Allergy/AdvReac Type Severity Reaction Status Date / Time No Known Allergies Allergy Verified 06/21/17 10:23 ROS unobtainable: due to mental status All Systems: A 10-system review of systems was performed and is negative for pertinent findings except as documented above in the HPI. Physical Examination - Vital Signs Vital Signs: Initial Vital Signs Temp Pulse Resp BP Pulse Ox 98.3 F 90 18 115/77 99 06/20/17 14:50 06/20/17 14:50 06/20/17 14:50 06/20/17 14:50 06/20/17 14:50 - Constitutional General appearance: other (Limited neurological examination as according to the staff patient just has a convulsive episode currently he is not jerking or shaking but he is unresponsive his pupils are reactive eyes are rolled upward without any nystagmus. Pupils are reactive. He did not have any withdrawal to verbal stimuli or to any deep pain. Reflexes are symmetrical and downgoing toes bilaterally.) Results - Laboratory Findings CBC and BMP: 06/26/17 06:39 06/26/17 06:39 Abnormal lab findings: Abnormal lab results MPV 9.3 fL (9.4-12.4) L 06/26/17 06:39 POC Glucose 112 (58-89) H 06/26/17 11:04 Calcium 8.5 mg/dL (8.6-10.3) L 06/26/17 06:39 AST 47 Units/L (13-39) H 06/23/17 05:08 ALT 82 Units/L (7-52) H 06/23/17 05:08 Serum Total Protein 5.5 g/dL (6.4-8.9) L 06/23/17 05:08 Albumin 3.1 g/dL (3.5-5.7) L 06/23/17 05:08 Salicylates < 5.0 mg/dL (15.0-30.0) L 06/20/17 15:10 Acetaminophen < 1.0 mcg/mL (10-30) L 06/20/17 15:10 Ur Amphetamines Screen Positive ng/mL (Mdnrsm=[id number]) H 06/20/17 15:10 Hepatitis C Ab Screen Reactive (Nonreactive) H 06/21/17 01:07 - Diagnostic Findings Additional findings: Patient had an MRI of the brain earlier that did not show any acute abnormality 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 EEG was also negative for any acute abnormal activity Consult Discharge Plan - Plan Referrals: NONE,PCP [Primary Care Provider] -
--- NOTE | 2017-06-26 11:22 | Neurology Progress Note ---
Date of Encounter: 06/26/17 Time of Encounter: 09:50 Assessment and Plan (1) Seizure Current Visit: Yes Status: Acute This patient who had multiple seizures predominantly generalized convulsive postictal state now still having few breakthrough seizures though at this time is not figured that indeed all these as spells are true epileptic as earlier than the one he was having and was examined just after the seizure and he was quite postictal but now according to the patient that sometime he can hear and understand what is going on around. Which make me wonder that perhaps all of them might not be true epileptic. Regardless he is on Keppra suggested that should continue twice a. EEG earlier was negative. 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 Also suggested decreased the frequency of the Ativan and should use all leak. The seizure lasts more than 3-5 minutes. On the other hand continue him on withdrawal protocol as he has been on multiple substance abuse side also and perhaps may had withdrawal from them as well. He should remain on seizure precautions. Discussed with the primary team and the family who is at the bedside (2) Alcohol withdrawal seizure Current Visit: Yes Status: Acute Qualifiers: Complication of substance-induced condition: with unspecified complication Qualified Code(s): F10.239 - Alcohol dependence with withdrawal, unspecified; R56.9 - Unspecified convulsions; R56.9 - Unspecified convulsions; R56.9 - Unspecified convulsions; R56.9 - Unspecified convulsions Subjective Principal diagnosis: seizure like activity Interval history: Patient seen as an follow-up he was reevaluated yesterday because of multiple breakthrough seizures though initially it was thought that these are likely alcohol withdrawal but he continued to have them despite being on withdrawal protocol he was started on Keppra since yesterday he did have decrease in frequency but is still have quite a few rate through seizures those are generalized tonic-clonic in nature with some postictal state. No dizzy spells are not as prominent but is still have at least 2-3 seizures yesterday. He is had an MRI of the brain showed Mild motion artifact. No acute intracranial abnormality or finding to suggest etiology of seizures. 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 Follow-up MRI of the brain with and without contrast is recommended in 1 year Patient is now alert awake and oriented able to follow commands and able to have a conversation no focal motor deficit. Objective - Constitutional Vitals: Temp Pulse Resp BP Pulse Ox 97.8 F 84 16 91/64 95 06/26/17 11:05 06/26/17 11:05 06/26/17 11:05 06/26/17 11:05 06/26/17 11:05 - Neurological Exam Sensorimotor examination: Present: intact, other (Unable to assess due to altered mental status) Motor Examination: Present: grossly full strength in all extremities, full strength in all major muscle groups Motor examination - right side: 5/5: deltoids, biceps, triceps, wrist flexion, wrist extension, marshmallow machine worker, hip flexors, tibialis Anterior, quadriceps, toe extension (EHL), plantarflexion Motor examination - left side: 5/5: deltoids, biceps, triceps, wrist flexion, wrist extension, hip flexors, marshmallow machine worker, quadriceps, tibialis Anterior, toe extension (EHL), plantarflexion Sensation intact: Present: intact, other Reflex and gait examination: other (Intact) Reflexes: Biceps: 1+, Triceps: 1+, Brachioradialis: 1+, Patella: 1+, Achilles: 1 + Mental Status Examination: Present: awake, alert, oriented to person, oriented to place, oriented to time, follows commands appropriately, answers questions appropriately, no agnosia, no aphasia, no aproxia Cranial nerve examination: Present: PERRL, EOMI, visual contreras intact, corneal reflexes brisk symmetrically, sensory to face intact, mastication intact, no facial asymmetry is present, no dysarthria, hearing is intact symmetrically, soft palate elevates bilaterally upon phonation, gag reflex intact, flexes SCM and trapezius muscles symmetrically with full power, tongue protrudes midline, no atrophy or facial fasiculations present Results - Laboratory Findings CBC and BMP: 06/26/17 06:39 06/26/17 06:39 Abnormal lab findings: Abnormal lab results MPV 9.3 fL (9.4-12.4) L 06/26/17 06:39 POC Glucose 112 (58-89) H 06/26/17 11:04 Calcium 8.5 mg/dL (8.6-10.3) L 06/26/17 06:39 AST 47 Units/L (13-39) H 06/23/17 05:08 ALT 82 Units/L (7-52) H 06/23/17 05:08 Serum Total Protein 5.5 g/dL (6.4-8.9) L 06/23/17 05:08 Albumin 3.1 g/dL (3.5-5.7) L 06/23/17 05:08 Salicylates < 5.0 mg/dL (15.0-30.0) L 06/20/17 15:10 Acetaminophen < 1.0 mcg/mL (10-30) L 06/20/17 15:10 Ur Amphetamines Screen Positive ng/mL ([id number]) H 06/20/17 15:10 Hepatitis C Ab Screen Reactive (Nonreactive) H 06/21/17 01:07 Consult Discharge Plan - Plan Referrals: NONE,PCP [Primary Care Provider] -
[2017-06-26] MEDS ORDERED: 0.9 % Sodium Chloride 1,000 ML ONE (12:28)
--- NOTE | 2017-06-26 16:49 | Internal Med Progress Note ---
Date of Encounter: 06/26/17 Time of Encounter: 11:25 - Assessment and plan (1) Alcohol withdrawal seizure Current Visit: Yes Status: Acute Assessment and plan: Patient continuing to have seizures. Discussed with neurology. Will increase Keppra dosage to 1000 mg twice a day. Use Ativan for seizures greater than 5 minutes. Continue Librium. High risk for complications. Monitor closely. Qualifiers: Complication of substance-induced condition: with unspecified complication Qualified Code(s): F10.239 - Alcohol dependence with withdrawal, unspecified; R56.9 - Unspecified convulsions; R56.9 - Unspecified convulsions; R56.9 - Unspecified convulsions; R56.9 - Unspecified convulsions (2) Alcohol withdrawal Current Visit: Yes Status: Acute Assessment and plan: Continue to monitor per [facility] protocol. On thiamine Qualifiers: Complication of substance-induced condition: with unspecified complication Qualified Code(s): F10.239 - Alcohol dependence with withdrawal, unspecified (3) Seizure Current Visit: Yes Status: Acute (4) Suicidal ideation Current Visit: Yes Status: Acute Assessment and plan: Plan to transfer to psychiatric unit once medically stable. (5) Alcohol dependence Current Visit: Yes Status: Chronic Assessment and plan: Supportive care. Continue to monitor for seizures and withdrawal. Qualifiers: Substance use status: unspecified alcohol-induced disorder Qualified Code(s ): F10.29 - Alcohol dependence with unspecified alcohol-induced disorder (6) COPD (chronic obstructive pulmonary disease) Current Visit: Yes Status: Chronic Assessment and plan: On bronchodilators as needed Qualifiers: COPD type: emphysema Emphysema type: unspecified Qualified Code(s): J43.9 - Emphysema, unspecified (7) Drug abuse and dependence Current Visit: Yes Status: Chronic (8) DVT prophylaxis Current Visit: Yes Status: Acute Assessment and plan: With subcutaneous Lovenox - Subjective Interval history: Patient has continued to have seizure episodes today. He was awake and alert earlier this morning. Responding to questions well. Denies any other complaints at this time. - Constitutional Vitals: Temp Pulse Resp BP Pulse Ox 97.9 F 100 17 111/58 95 06/26/17 15:36 06/26/17 15:36 06/26/17 15:36 06/26/17 15:55 06/26/17 15:36 General appearance: Present: A&O X 3, no acute distress, answers questions appropriately Exam: Somnolent but easily awakes. - Neck Neck exam general surgery: Present: supple, trachea midline. Absent: lymphadenopathy - Respiratory Respiratory exam: Present: CTAB. Absent: accessory muscle use, rales, rhonchi, wheezes - Cardiovascular Cardiovascular exam: Present: RRR, +S1, +S2. Absent: diastolic murmur, gallop, rubs, systolic murmur - GI/Abdominal GI/Abdominal exam: Present: normal bowel sounds, soft, no peritoneal signs. Absent: distended, tenderness - Extremities Exam Extremities exam: Present: warm, radial pulses palpable and symmetrical. Absent : calf tenderness, cyanotic, pedal edema - Neurological Exam Neurological exam: Present: alert, no focal deficits. Absent: facial droop, speech deficit Internal Medicine: Result - Labs CBC & Chem 7: 06/26/17 06:39 06/26/17 06:39 Labs: Short CBC 06/26/17 Range/Units 06:39 WBC 7.2 (4.3-11.1) K/mcL Hgb 14.4 (12.9-16.9) g/dL Hct 42.3 (37.5-50.1) % Plt Count 258 (140-400) K/mcL Neutrophils # 4.1 (1.6-8.9) K/mcL BMP 06/26/17 06:39 Sodium 136 Potassium 3.8 Chloride 104 Carbon Dioxide 27 BUN 11 Creatinine 0.76 Glucose 92 Calcium 8.5 L - ABG Interpretation ABG results: PT/INR, D-dimer PT 10.3 Seconds (9.4-12.1) 06/20/17 18:06 - Impressions Impressions Brain MRI 06/25/17 12:07 IMPRESSION: 1. Mild motion artifact. 2. No acute intracranial abnormality or finding to suggest etiology of seizures. 3. 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 Follow-up MRI of the brain with and without contrast is recommended in 1 year to ensure stability. D/ / Esequiel Escalera / Esequiel Escalera Interpreting Provider: Esequiel Escalera Consult Discharge Plan - Plan Referrals: NONE,PCP [Primary Care Provider] -
[2017-06-26] MEDS: levETIRAcetam 1,000 MG in 0.9 % Sodium Chloride 100 ML IVPB SCH (20:11)
[2017-06-26] MEDS ORDERED: Nicotine 2 MG GUM BC PRN (21:06)
[2017-06-26] MEDS ORDERED: Nicotine 21 MG PATCH.TD24 TD ONE (21:36)
[2017-06-27] MEDS: *HR* LORazepam 2 MG/ML VIAL IVP PRN (01:42)
[2017-06-27] MEDS: *HR* Enoxaparin 40 MG/0.4 ML SYRINGE SQ SCH (06:33)
[2017-06-27] MEDS: Thiamine (B-1) 100 MG TABLET PO SCH (09:07)
[2017-06-27] MEDS: Nicotine 21 MG PATCH.TD24 TD SCH (09:07)
[2017-06-27] MEDS: levETIRAcetam 1,000 MG in 0.9 % Sodium Chloride 100 ML IVPB SCH ×2 (11:28→20:40)
--- NOTE | 2017-06-27 14:44 | Internal Med Progress Note ---
Date of Encounter: 06/27/17 Time of Encounter: 12:00 - Assessment and plan (1) Alcohol withdrawal seizure Current Visit: Yes Status: Acute Assessment and plan: Continue Keppra. Continue Librium. Avoid Ativan use for simple jerky movements. Give Ativan only for seizures lasting greater than 5 minutes. Discussed with nursing staff. We will follow along closely. Continue seizure precautions. Qualifiers: Complication of substance-induced condition: with unspecified complication Qualified Code(s): F10.239 - Alcohol dependence with withdrawal, unspecified; R56.9 - Unspecified convulsions; R56.9 - Unspecified convulsions; R56.9 - Unspecified convulsions; R56.9 - Unspecified convulsions (2) Alcohol withdrawal Current Visit: Yes Status: Acute Assessment and plan: Continue supportive care as above. On Librium for withdrawal symptoms. Qualifiers: Complication of substance-induced condition: with unspecified complication Qualified Code(s): F10.239 - Alcohol dependence with withdrawal, unspecified (3) Seizure Current Visit: Yes Status: Acute (4) Suicidal ideation Current Visit: Yes Status: Acute Assessment and plan: Plan to discharge her to a psychiatric unit once medically stable for further psychiatric care. (5) Alcohol dependence Current Visit: Yes Status: Chronic Assessment and plan: Continue thiamine Qualifiers: Substance use status: unspecified alcohol-induced disorder Qualified Code(s ): F10.29 - Alcohol dependence with unspecified alcohol-induced disorder (6) COPD (chronic obstructive pulmonary disease) Current Visit: Yes Status: Chronic Assessment and plan: Not in acute exacerbation. Qualifiers: COPD type: emphysema Emphysema type: unspecified Qualified Code(s): J43.9 - Emphysema, unspecified (7) Drug abuse and dependence Current Visit: Yes Status: Chronic Assessment and plan: Consult about cessation. production manufacturing worker has provided patient with information regarding rehabilitation. I also discussed with patient's parents about need for rehabilitation but informed them that the patient should make an effort to seek rehabilitation. (8) DVT prophylaxis Current Visit: Yes Status: Acute - Subjective Interval history: Patient is somnolent. Patient's present at bedside. Denies any complaints at this time. Just feels tired. Tolerating regular diet. Patient did this receive Ativan last night. His last dose was at 1:42 AM. He has continued to have jerky movements which seem to be more intentional rather than actual seizures. This was witnessed by the nurse this morning. No bowel or bladder incontinence. - Constitutional Vitals: Temp Pulse Resp BP Pulse Ox 98.8 F 91 18 97/46 94 06/27/17 11:30 06/27/17 11:30 06/27/17 11:30 06/27/17 11:30 06/27/17 11:30 General appearance: Present: A&O X 3, no acute distress, answers questions appropriately - Respiratory Respiratory exam: Present: CTAB. Absent: accessory muscle use, rales, rhonchi, wheezes - Cardiovascular Cardiovascular exam: Present: RRR, +S1, +S2. Absent: diastolic murmur, gallop, rubs, systolic murmur - GI/Abdominal GI/Abdominal exam: Present: normal bowel sounds, soft, no peritoneal signs. Absent: distended, tenderness - Extremities Exam Extremities exam: Present: warm, radial pulses palpable and symmetrical. Absent : calf tenderness, cyanotic, pedal edema - Neurological Exam Neurological exam: Present: CN II-XII intact, oriented X3, no focal deficits. Absent: facial droop, speech deficit Internal Medicine: Result - Labs CBC & Chem 7: 06/26/17 06:39 06/26/17 06:39 - ABG Interpretation ABG results: PT/INR, D-dimer PT 10.3 Seconds (9.4-12.1) 06/20/17 18:06 Consult Discharge Plan - Plan Referrals: NONE,PCP [Primary Care Provider] -
--- NOTE | 2017-06-27 21:19 | Neurology Progress Note ---
Date of Encounter: 06/27/17 Time of Encounter: 04:10 Assessment and Plan (1) Seizure Current Visit: Yes Status: Acute Patient seems to be doing much better he did not have any focal motor deficit on his examination also did not have any further seizures today. He did have multiple spells earlier yesterday and was receiving a lot of Ativan suggested not to use any Ativan unless his seizure type of activity was more than 5 minutes as now I suspect that these could be more behavioral in nature due to the fact that he does acknowledges that some of these as spells he is able to listen but he was not responding. Certainly there are a lot of psychosomatic symptoms and features associated at the same time there is significant psychological issues are also present patient make me wonder that perhaps some of these spells may not be true epileptic. Regardless is only been on the Keppra suggested to continue earlier EEG was negative MRIs also negative for any acute ischemic event. For now we may continue him on Keppra again recommended not to use any Ativan unless there is a real seizure activity lasted more than 5 minutes. Continue him on withdrawal precautions with Librium and thiamine. The a lot of substance abuse it involved most of them probably not been showing up in routine toxicology screening. He should be monitored for withdrawal symptoms. Certainly need follow-up with psychiatric services as well (2) Alcohol withdrawal seizure Current Visit: Yes Status: Acute Qualifiers: Complication of substance-induced condition: with unspecified complication Qualified Code(s): F10.239 - Alcohol dependence with withdrawal, unspecified; R56.9 - Unspecified convulsions; R56.9 - Unspecified convulsions; R56.9 - Unspecified convulsions; R56.9 - Unspecified convulsions Subjective Principal diagnosis: seizure like activity Interval history: Patient seen as an follow-up he was reevaluated yesterday because of multiple breakthrough seizures though initially it was thought that these are likely alcohol withdrawal but he continued to have them despite being on withdrawal protocol he was started on Keppra since yesterday he did have decrease in frequency but is still have quite a few rate through seizures those are generalized tonic-clonic in nature with some postictal state. No dizzy spells are not as prominent but is still have at least 2-3 seizures yesterday. He is had an MRI of the brain showed Mild motion artifact. No acute intracranial abnormality or finding to suggest etiology of seizures. 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 Follow-up MRI of the brain with and without contrast is recommended in 1 year Patient is now alert awake and oriented able to follow commands and able to have a conversation no focal motor deficit. Objective - Constitutional Vitals: Temp Pulse Resp BP Pulse Ox 98.5 F 92 16 101/59 95 06/27/17 18:57 06/27/17 18:57 06/27/17 18:57 06/27/17 18:57 06/27/17 18:57 - Neurological Exam Sensorimotor examination: Present: intact Motor Examination: Present: grossly full strength in all extremities, full strength in all major muscle groups Motor examination - right side: 5/5: deltoids, biceps, triceps, wrist flexion, wrist extension, director card, hip flexors, toe extension (EHL), plantarflexion Motor examination - left side: 5/5: deltoids, biceps, triceps, wrist flexion, wrist extension, hip flexors, director card, quadriceps, tibialis Anterior, toe extension (EHL), plantarflexion Sensation intact: Present: intact, other Posture: Present: other (None) Reflex and gait examination: intact (Intact) Mental Status Examination: Present: awake, alert, oriented to person, oriented to place, oriented to time, follows commands appropriately, answers questions appropriately, no agnosia, no aphasia, no aproxia Cranial nerve examination: Present: PERRL, EOMI, visual contreras intact, corneal reflexes brisk symmetrically, sensory to face intact, mastication intact, no facial asymmetry is present, no dysarthria, hearing is intact symmetrically, soft palate elevates bilaterally upon phonation, gag reflex intact, flexes SCM and trapezius muscles symmetrically with full power, tongue protrudes midline, no atrophy or facial fasiculations present Results - Laboratory Findings CBC and BMP: 06/26/17 06:39 06/26/17 06:39 Abnormal lab findings: Abnormal lab results MPV 9.3 fL (9.4-12.4) L 06/26/17 06:39 POC Glucose 112 (58-89) H 06/26/17 11:04 Calcium 8.5 mg/dL (8.6-10.3) L 06/26/17 06:39 AST 47 Units/L (13-39) H 06/23/17 05:08 ALT 82 Units/L (7-52) H 06/23/17 05:08 Serum Total Protein 5.5 g/dL (6.4-8.9) L 06/23/17 05:08 Albumin 3.1 g/dL (3.5-5.7) L 06/23/17 05:08 Salicylates < 5.0 mg/dL (15.0-30.0) L 06/20/17 15:10 Acetaminophen < 1.0 mcg/mL (10-30) L 06/20/17 15:10 Ur Amphetamines Screen Positive ng/mL ([id number]) H 06/20/17 15:10 Hepatitis C Ab Screen Reactive (Nonreactive) H 06/21/17 01:07 Consult Discharge Plan - Plan Referrals: NONE,PCP [Primary Care Provider] -
[2017-06-27] MEDS ORDERED: Nicotine 21 MG PATCH.TD24 TD ONE (21:25)
[2017-06-28] MEDS: *HR* Enoxaparin 40 MG/0.4 ML SYRINGE SQ SCH (05:30)
[2017-06-28] MEDS: Thiamine (B-1) 100 MG TABLET PO SCH (08:50)
[2017-06-28] MEDS: Nicotine 21 MG PATCH.TD24 TD SCH ×2 (08:51→10:37)
[2017-06-28] MEDS: levETIRAcetam 1,000 MG in 0.9 % Sodium Chloride 100 ML IVPB SCH (08:59)
--- NOTE | 2017-06-28 10:08 | Neurology Progress Note ---
Date of Encounter: 06/28/17 Time of Encounter: 07:30 Assessment and Plan (1) Seizure Current Visit: Yes Status: Acute Seems to be doing better suggested to continue on Keppra. He did have some brief episodes of altered consciousness really doubt those are convulsive/true epileptic seizures Likely behavioral and nonconvulsive. Already had an EEG that was negative. From neurology standpoint he has a stable suggest to continue on current medication and her drug protocol. Recommended follow-up with psychiatry. From neurology standpoint patient could be discharged and transferred. We will sign off call if needed (2) Alcohol withdrawal seizure Current Visit: Yes Status: Acute Qualifiers: Complication of substance-induced condition: with unspecified complication Qualified Code(s): F10.239 - Alcohol dependence with withdrawal, unspecified; R56.9 - Unspecified convulsions; R56.9 - Unspecified convulsions; R56.9 - Unspecified convulsions; R56.9 - Unspecified convulsions Subjective Principal diagnosis: seizure like activity Interval history: Patient seen as an follow-up . No further seizures may had a brief episode of few seconds earlier but again not any further generalized conversion needed any postictal state. He seems to be back to his baseline. MRI of the brain showed Mild motion artifact. No acute intracranial abnormality or finding to suggest etiology of seizures. 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 Patient is now alert awake and oriented able to follow commands and able to have a conversation no focal motor deficit. Objective - Constitutional Vitals: Temp Pulse Resp BP Pulse Ox 97.9 F 57 20 109/61 95 06/28/17 07:49 06/28/17 07:49 06/28/17 07:49 06/28/17 07:49 06/28/17 07:49 - Neurological Exam Sensorimotor examination: Present: intact Motor Examination: Present: grossly full strength in all extremities, full strength in all major muscle groups Motor examination - left side: 5/5: deltoids, biceps, triceps, wrist flexion, wrist extension, hip flexors, anthropology lecturer, quadriceps, tibialis Anterior, toe extension (EHL), plantarflexion Sensation intact: Present: intact, other Posture: Present: other (None) Reflex and gait examination: intact (Intact) Mental Status Examination: Present: awake, alert, oriented to person, oriented to place, oriented to time, follows commands appropriately, answers questions appropriately, no agnosia, no aphasia, no aproxia Cranial nerve examination: Present: PERRL, EOMI, visual contreras intact, corneal reflexes brisk symmetrically, sensory to face intact, mastication intact, no facial asymmetry is present, no dysarthria, hearing is intact symmetrically, soft palate elevates bilaterally upon phonation, gag reflex intact, flexes SCM and trapezius muscles symmetrically with full power, tongue protrudes midline, no atrophy or facial fasiculations present Results - Laboratory Findings CBC and BMP: 06/26/17 06:39 06/26/17 06:39 Abnormal lab findings: Abnormal lab results MPV 9.3 fL (9.4-12.4) L 06/26/17 06:39 POC Glucose 95 (58-89) H 06/27/17 05:28 Calcium 8.5 mg/dL (8.6-10.3) L 06/26/17 06:39 AST 47 Units/L (13-39) H 06/23/17 05:08 ALT 82 Units/L (7-52) H 06/23/17 05:08 Serum Total Protein 5.5 g/dL (6.4-8.9) L 06/23/17 05:08 Albumin 3.1 g/dL (3.5-5.7) L 06/23/17 05:08 Salicylates < 5.0 mg/dL (15.0-30.0) L 06/20/17 15:10 Acetaminophen < 1.0 mcg/mL (10-30) L 06/20/17 15:10 Ur Amphetamines Screen Positive ng/mL ([id number]) H 06/20/17 15:10 Hepatitis C Ab Screen Reactive (Nonreactive) H 06/21/17 01:07 Consult Discharge Plan - Plan Referrals: NONE,PCP [Primary Care Provider] -
[2017-06-28] MEDS ORDERED: Nicotine 21 MG PATCH.TD24 TD SCH (10:15)
[2017-06-28 15:24] VITALS: BP 110/73
--- NOTE | 2017-06-28 16:19 | Internal Med Progress Note ---
Date of Encounter: 06/28/17 Time of Encounter: 16:16 - Assessment and plan (1) Alcohol withdrawal seizure Current Visit: Yes Status: Acute Assessment and plan: On Librium and Keppra. No new episodes of true seizures. He has not required Ativan since early yesterday morning. Neurology signed off. No further recommendations from a neurologic standpoint. Qualifiers: Complication of substance-induced condition: with unspecified complication Qualified Code(s): F10.239 - Alcohol dependence with withdrawal, unspecified; R56.9 - Unspecified convulsions; R56.9 - Unspecified convulsions; R56.9 - Unspecified convulsions; R56.9 - Unspecified convulsions (2) Alcohol withdrawal Current Visit: Yes Status: Acute Assessment and plan: Continue to monitor per [facility] protocol. We will begin to taper down Librium. Qualifiers: Complication of substance-induced condition: with unspecified complication Qualified Code(s): F10.239 - Alcohol dependence with withdrawal, unspecified (3) Seizure Current Visit: Yes Status: Acute (4) Suicidal ideation Current Visit: Yes Status: Acute Assessment and plan: Patient continues to be severely depressed and is dealing with family issues. I believe this is contributing to his episodes of shakes all over as he seems to be wanting Ativan to help him sleep. He has not had any seizure-like activity since yesterday morning when the Ativan dosage was changed to be strictly given only for seizures greater than 5 minutes. He did however have an episode that seems to have been triggered due to family issues with his girlfriend. These episodes are most likely not true seizures. Patient is however medicated with antiepileptics at this time. Clinically, I think he is stable to be discharged to psychiatric unit. I discussed his care with psychiatric nurse and they will evaluate the patient to see if it is appropriate to be admitted to psych unit. They understand his present situation and will give recommendations based on their capabilities. (5) Alcohol dependence Current Visit: Yes Status: Chronic Assessment and plan: Continue thiamine Qualifiers: Substance use status: unspecified alcohol-induced disorder Qualified Code(s ): F10.29 - Alcohol dependence with unspecified alcohol-induced disorder (6) COPD (chronic obstructive pulmonary disease) Current Visit: Yes Status: Chronic Assessment and plan: Bronchodilators as needed. Not in acute exacerbation. Qualifiers: COPD type: emphysema Emphysema type: unspecified Qualified Code(s): J43.9 - Emphysema, unspecified (7) Drug abuse and dependence Current Visit: Yes Status: Chronic Assessment and plan: hydroponics worker consulted. (8) DVT prophylaxis Current Visit: Yes Status: Acute Assessment and plan: Subcutaneous Lovenox - Subjective Interval history: Patient was doing well this morning. Awake and alert. Answered questions appropriately. Denies any new complaints. Prior to my visit, patient apparently became dizzy after she went to use the restroom. His symptoms improved after he laid down for a bit. Orthostatic blood pressure was checked and this was negative for orthostasis. Since then he had improved and denied any dizziness or lightheadedness. However this afternoon he apparently was agitated over some family issues with his girlfriend and began to shake all over. Nurse was witnessed to this and it did not appear to be an active seizure. Patient was controlling his movements and did not have LOC. This had subsided after 30 seconds. Patient did not respond to staff after and has been holding his pillow and sleeping to the side - Constitutional Vitals: Temp Pulse Resp BP Pulse Ox 98.7 F 89 20 110/73 97 06/28/17 15:20 06/28/17 15:52 06/28/17 15:20 06/28/17 15:20 06/28/17 15:20 General appearance: Present: A&O X 3, no acute distress, answers questions appropriately - Respiratory Respiratory exam: Present: CTAB. Absent: accessory muscle use, rales, rhonchi, wheezes - Cardiovascular Cardiovascular exam: Present: RRR, +S1, +S2. Absent: diastolic murmur, gallop, rubs, systolic murmur - GI/Abdominal GI/Abdominal exam: Present: normal bowel sounds, soft, no peritoneal signs. Absent: distended, tenderness - Extremities Exam Extremities exam: Present: warm, radial pulses palpable and symmetrical. Absent : calf tenderness, cyanotic, pedal edema - Neurological Exam Neurological exam: Present: CN II-XII intact, oriented X3, no focal deficits. Absent: facial droop, speech deficit Internal Medicine: Result - Labs CBC & Chem 7: 06/26/17 06:39 06/26/17 06:39 - ABG Interpretation ABG results: PT/INR, D-dimer PT 10.3 Seconds (9.4-12.1) 06/20/17 18:06 Consult Discharge Plan - Plan Referrals: NONE,PCP [Primary Care Provider] - (PATIENT IS WAITING ON A BED AT A PSYCH UNIT , NO PCP APPOINTMENT NEEDED)
--- NOTE | 2017-06-28 16:50 | Discharge Summary ---
Date of Encounter: 06/28/17 Time of Encounter: 16:46 - Discharge Diagnosis (1) Alcohol withdrawal seizure Priority: Primary Status: Acute Qualifiers: Complication of substance-induced condition: with unspecified complication Qualified Code(s): F10.239 - Alcohol dependence with withdrawal, unspecified; R56.9 - Unspecified convulsions; R56.9 - Unspecified convulsions; R56.9 - Unspecified convulsions; R56.9 - Unspecified convulsions (2) Alcohol withdrawal Priority: Secondary Status: Acute Qualifiers: Complication of substance-induced condition: with unspecified complication Qualified Code(s): F10.239 - Alcohol dependence with withdrawal, unspecified (3) Seizure Priority: Secondary Status: Acute (4) Suicidal ideation Priority: Secondary Status: Acute (5) Alcohol dependence Priority: Secondary Status: Chronic Qualifiers: Substance use status: unspecified alcohol-induced disorder Qualified Code(s ): F10.29 - Alcohol dependence with unspecified alcohol-induced disorder (6) COPD (chronic obstructive pulmonary disease) Priority: Secondary Status: Chronic Qualifiers: COPD type: emphysema Emphysema type: unspecified Qualified Code(s): J43.9 - Emphysema, unspecified (7) Drug abuse and dependence Priority: Secondary Status: Chronic (8) DVT prophylaxis Priority: Secondary Status: Acute - Discharge Medications Home Medications: Chlordiazepoxide [Librium] 25 mg PO QID 3 Days #14 capsule 06/28/17 [Rx] Thiamine (B-1) [Vitamin B-1] 100 mg PO DAILY tablet 06/28/17 [Rx] levETIRAcetam [Keppra] 1,000 mg PO Q12HR tablet 06/28/17 [Rx] Allergies/Adverse Reactions: 3 Allergy/AdvReac Type Severity Reaction Status Date / Time No Known Allergies Allergy Verified 06/21/17 10:23 Date of admission: 06/24/17 10:20 Primary care physician: PCP NONE Consults: 06/24/17 12:08 Consult to Interpret Exam [CONS] Routine Consulting Provider: David Lutz Consult to Interpret Exam: Interpret EEG 06/26/17 10:50 Consult to Neurology [CONS] Routine Consulting Provider: [facility] Reason for Consult: Seizures Call Completed: Yes 06/28/17 14:06 Consult to Psychiatry [CONS] Routine Consulting Provider: Psychiatry [facility] Reason for Consult: Suicial ideation; prev accepted to 1A Call Completed: Yes Discharging clinician: Adria Beard Anticipated date of discharge: 06/28/17 - Patient Status Disposition: Transfer Psychiatric Hosp Condition: Fair Functional capacity at discharge: independent ambulation Overall status at discharge: patient is progressing back to baseline - Discharge Instructions Instructions: Chronic Obstructive Pulmonary Disease (DC) Follow Up With: NONE,PCP [Primary Care Provider] - (PATIENT IS WAITING ON A BED AT A PSYCH UNIT , NO PCP APPOINTMENT NEEDED) Betty Rodriguez MD [Partnered Physician] - (Possible seizures, pineal cyst in 1-2 weeks) Additional Instructions: Follow up with neurology. You need an MRI in 1 year for follow-up regarding pineal cyst. This can be coordinated with the neurologists office. - Diet and Activity Activity: increase activity as tolerated Diet: regular diet Hospital course: Mr. Bates is a 32 year old male patient with history of chronic drug abuse with cocaine, heroine methamphetamines, and chronic alcohol abuse was hospitalized here with suicidal ideation. He was monitored here for alcohol withdrawal and developed severe withdrawal with tremors and was placed on intravenous Ativan as needed to help with this. He also also placed on oral Librium and thiamine. His symptoms initially improved but then he developed acute seizures which were believed to be alcohol withdrawal seizures. Patient was then transferred to ICU and then to stepdown unit. He has been closely monitored since then. Neurology evaluated the patient and recommended MRI of the brain and EEG. 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 He continued to have episodes of seizure-like activity. Patient was placed on Keppra per neurology recommendations. Patient has continued to have seizure-like activity which appears to be triggered when patient's family is present. These appear to be more psychogenic in nature than true seizures. 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 I have discussed this case with psychiatry and they have evaluated the patient and would admit him to the psychiatric care today. Patient will be transferred to psych unit today. He will continue taking Keppra and will follow up with neurology after discharge. - Time Spent with Patient Total time spent providing and/or coordinating discharge services: Greater than 30 minutes (40 min) - Constitutional Vitals: Temp Pulse Resp BP Pulse Ox 98.7 F 89 20 110/73 97 06/28/17 15:20 02/12/18 15:52 06/28/17 15:20 06/28/17 15:20 06/28/17 15:20 General appearance: Present: A&O X 3, no acute distress, answers questions appropriately - Neck Neck exam general surgery: Present: supple, trachea midline. Absent: lymphadenopathy - Respiratory Respiratory exam: Present: CTAB. Absent: accessory muscle use, rales, rhonchi, wheezes - Cardiovascular Cardiovascular exam: Present: RRR, +S1, +S2. Absent: diastolic murmur, gallop, rubs, systolic murmur - GI/Abdominal GI/Abdominal exam: Present: normal bowel sounds, soft, no peritoneal signs. Absent: distended, tenderness - Neurological Exam Neurological exam: Present: CN II-XII intact, oriented X3, no focal deficits. Absent: facial droop, speech deficit - Psychiatric Psychiatric exam: Present: flat affect
--- NOTE | 2017-06-28 17:07 | Consult Note ---
Date of Encounter: 06/28/17 Time of Encounter: 16:30 Assessment & Recommendation (1) Other recurrent depressive disorders Current visit: Yes Status: Acute Assessment & Recommendation: Patient agrees to go voluntarily to 1 a. If he refuses the emergency hospitalization should be sought. Emergency medicine may be necessary if the patient becomes uncooperative. (2) Other stimulant dependence with withdrawal Current visit: Yes Status: Acute Assessment & Recommendation: Continue to observe for withdrawal associated dysphoria. Patient appears to be stabilized but may have a rebound withdrawal (3) Alcohol dependence with withdrawal with perceptual disturbance Current visit: Yes Status: Resolved Assessment & Recommendation: This appears to withdrawal but we will continue to observe and treat with benzodiazepines as necessary (4) Unspecified convulsions Current visit: Yes Status: Acute Assessment & Recommendation: The patient is currently on Keppra should be helpful in keeping him seizure free. 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 Then he can be further assessed History of Present Illness Requesting Physician: Adria Beard MD Reason for consult: I want help, I have been here History of present illness: Mr. Bates is a 32 year old male The patient was seen briefly. He is on close observation and while in a telemetry unit he attempted to wrap the wires around his neck. He is attempted to move out of bed. He has had non-epileptiform seizures but is also being treated for possible convulsions associated with alcohol withdrawal. The patient has had a negative EEG and an noncontributory MRI. When asked the patient offered a variety of reasons why he might try to kill himself these included the fact that he had drug problems and the problems with alcohol the hepatitis C. COPD. In addition the patient has cited his girlfriend leaving after his return. The patient returned from prison a few months ago on drug-related charges. The patient was reluctant to describe some business signs and symptoms with the patient's been previously seen by psychiatry was admitted for medical clarification. This is yielded ongoing treatment on more complicated for alcohol withdrawal. The patient is urine drug screen was positive for amphetamines but a full substance abuse history could not be obtained. Nonetheless patient agreed to go voluntarily to the locked psychiatric unit. The reader is referred to the H&P for additional information. 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 CC: Adria Beard MD Past Med Surg Social Fam HX - Past Medical History Medical history: COPD, hepatitis - Past Surgical History Surgical History: no surgical history - Social History Smoking Status: Current every day smoker Smokeless Tobacco Status: No Alcohol use: heavy (12-24 beers daily), recent Drug use: cocaine, methamphetamine, IV Drug Use, other (Heroin) - Family History Father Race: Family Member Ethnicity: Non- Living Status: Still Living Hx Family Cardiac Disorders: Yes Mother Race: Family Member Ethnicity: Non- Living Status: Still Living Hx Family Autoimmune Disorders: Yes (RA) Sister Race: Family Member Ethnicity: Non- Living Status: Still Living Hx Family Medical Disorders: No Medications & Allergies Chlordiazepoxide [Librium] 25 mg PO QID 3 Days #14 capsule 06/28/17 [Rx] Thiamine (B-1) [Vitamin B-1] 100 mg PO DAILY tablet 06/28/17 [Rx] levETIRAcetam [Keppra] 1,000 mg PO Q12HR tablet 06/28/17 [Rx] 3 Allergy/AdvReac Type Severity Reaction Status Date / Time No Known Allergies Allergy Verified 06/21/17 10:23 Review of Systems ROS limited: due to patient condition Constitutional: Denies: fever, chills, weakness, weight change Eyes: Denies: eye pain, vision change Ears, Nose, Throat: Denies: ear pain, throat pain, dental pain, hearing loss, congestion Cardiovascular: Denies: chest pain, palpitations, dyspnea on exertion Respiratory: Denies: cough, dyspnea, wheezes Gastrointestinal: Denies: abdominal pain, nausea, vomiting, diarrhea, constipation Genitourinary male: Denies: urgency, dysuria, frequency, genital lesions Genitourinary female: Denies: urgency, dysuria, frequency, abnormal menses, dyspareunia Musculoskeletal: Denies: joint swelling, joint pain Integumentary: Denies: rash, lesions, pruritus Neurological: Denies: headache, weakness, numbness, memory loss Endocrine: Denies: fatigue, heat or cold intolerance Hematologic/Lymphatic: Denies: easy bruising, lymphadenopathy Allergic/Immunologic: Denies: urticaria, itchy eyes Mental Status Exam Patient orientation: Yes Person, Yes Time, Yes Place, Yes Circumstance Level of alertness: Alert Patient appearance: Average, Thin Behavior: agitated, guarded, suspicious, impulsive Psychomotor activity: Normal Eye contact: Avoids Eye Contact Mood description: Depressed, Irritable Affect description: dysphoric Speech pattern: Normal rhythm Thought content: Yes Suicidal ideation Attention span: Unable to Sustain Attention Memory description: Grossly Intact Patient reliability: Questionable Historian Intelligence estimate: Average Judgment: Poor Insight: Minimal Results - Vital Signs Vital signs: Temp Pulse Resp BP Pulse Ox 98.7 F 89 20 110/73 97 06/28/17 15:20 06/28/17 15:52 06/28/17 15:20 06/28/17 15:20 06/28/17 15:20 - Drug Levels and Toxicology Drug Levels and Toxicology: meth postive - Labs Labs: Laboratory Last Values WBC 7.2 K/mcL (4.3-11.1) 06/26/17 06:39 RBC 4.64 M/mcL (4.19-5.50) 06/26/17 06:39 Hgb 14.4 g/dL (12.9-16.9) 06/26/17 06:39 Hct 42.3 % (37.5-50.1) 06/26/17 06:39 MCV 91.2 fL (83.0-100.0) 06/26/17 06:39 MCH 31.0 pg (28.0-33.3) 06/26/17 06:39 MCHC 34.0 g/dL (31.6-35.5) 06/26/17 06:39 RDW 12.1 % (11.5-14.5) 06/26/17 06:39 Plt Count 258 K/mcL (140-400) 06/26/17 06:39 MPV 9.3 fL (9.4-12.4) L 06/26/17 06:39 Immature Gran % 0.4 % (0-4) 06/26/17 06:39 Seg Neutrophils % 56.0 % 06/26/17 06:39 Lymphocytes % 27.5 % 06/26/17 06:39 Monocytes % 12.7 % 06/26/17 06:39 Eosinophils % 3.0 % 06/26/17 06:39 Basophils % 0.4 % 06/26/17 06:39 Neutrophils # 4.1 K/mcL (1.6-8.9) 06/26/17 06:39 Lymphocytes # 2.0 K/mcL (0.6-4.6) 06/26/17 06:39 Monocytes # 0.9 K/mcL (0.0-1.3) 06/26/17 06:39 Eosinophils # 0.2 K/mcL (0.0-0.6) 06/26/17 06:39 Basophils # 0.0 K/mcL (0.0-0.2) 06/26/17 06:39 Immature Plt Fraction 2.5 % (1.1-6.1) 06/23/17 05:08 PT 10.3 Seconds (9.4-12.1) 06/20/17 18:06 INR 1.0 06/20/17 18:06 Sodium 136 mEq/L (136-145) 06/26/17 06:39 Potassium 3.8 mEq/L (3.5-5.1) 06/26/17 06:39 Chloride 104 mEq/L (98-107) 06/26/17 06:39 Carbon Dioxide 27 mEq/L (23-29) 06/26/17 06:39 BUN 11 mg/dL (6-20) 06/26/17 06:39 Creatinine 0.76 mg/dL (0.70-1.30) 06/26/17 06:39 Est GFR ( Amer) > 60 (> 60) 06/26/17 06:39 Est GFR (Non-Af Amer) > 60 (> 60) 06/26/17 06:39 BUN/Creatinine Ratio 14 (6-26) 06/26/17 06:39 Glucose 92 mg/dL (70-105) 06/26/17 06:39 POC Glucose 95 (58-89) H 06/27/17 05:28 Est Mean Plasma Glucose 100 mg/dl 06/21/17 01:07 Hemoglobin A1c 5.1 % (-5.6) 06/21/17 01:07 Calculated Osmolality 281 (280-300) 06/26/17 06:39 Calcium 8.5 mg/dL (8.6-10.3) L 06/26/17 06:39 Phosphorus 3.6 mg/dL (2.7-4.5) 06/21/17 01:07 Magnesium 1.8 mg/dL (1.6-2.6) 06/26/17 06:39 Total Bilirubin 0.3 mg/dL (0.3-1.0) 06/23/17 05:08 Direct Bilirubin 0.1 mg/dL (0.0-0.2) 06/21/17 01:07 Indirect Bilirubin 0.3 mg/dL (0.0-1.2) 06/21/17 01:07 AST 47 Units/L (13-39) H 06/23/17 05:08 ALT 82 Units/L (7-52) H 06/23/17 05:08 Alkaline Phosphatase 83 Units/L (34-104) 06/23/17 05:08 Troponin I < 0.03 ng/mL (< 0.04) 06/21/17 07:39 Serum Total Protein 5.5 g/dL (6.4-8.9) L 06/23/17 05:08 Albumin 3.1 g/dL (3.5-5.7) L 06/23/17 05:08 Globulin 2.4 g/dL (2.4-3.5) 06/23/17 05:08 Albumin/Globulin Ratio 1.3 (1.1-2.2) 06/23/17 05:08 Triglycerides 45 mg/dL (< 150) 06/21/17 01:07 Cholesterol 99 mg/dL (< 200) 06/21/17 01:07 LDL Cholesterol, Calc 40 mg/dL (0-99) 06/21/17 01:07 VLDL Cholesterol, Calc 9 mg/dL (< 31) 06/21/17 01:07 HDL Cholesterol 50 mg/dL (40-59) 06/21/17 01:07 Cholesterol/HDL Ratio 2.0 (0-4.9) 06/21/17 01:07 TSH 0.635 mcIU/mL (0.340-5.600) 06/20/17 15:10 Prolactin 10.04 ng/mL (3.00-14.70) 06/23/17 13:40 Urine Color Yellow (Yellow) 06/20/17 15:10 Urine Clarity Clear (Clear) 06/20/17 15:10 Urine pH 7.0 pH Units (5.0-8.0) 06/20/17 15:10 Ur Specific Qu[place]by 1.023 (1.010-1.025) 06/20/17 15:10 Urine Protein Negative mg/dL (Neg-Trace) 06/20/17 15:10 Urine Glucose (UA) Normal mg/dL (Normal) 06/20/17 15:10 Urine Ketones Negative mg/dL (Negative) 06/20/17 15:10 Urine Blood Negative (Negative) 06/20/17 15:10 Urine Nitrite Negative (Negative) 06/20/17 15:10 Urine Bilirubin Negative (Negative) 06/20/17 15:10 Urine Urobilinogen Normal mg/dL (Normal) 06/20/17 15:10 Ur Leukocyte Esterase Negative (Negative) 06/20/17 15:10 Salicylates < 5.0 mg/dL (15.0-30.0) L 06/20/17 15:10 Urine Opiates Screen Negative ng/mL (Oemyat=993) 06/20/17 15:10 Acetaminophen < 1.0 mcg/mL (10-30) L 06/20/17 15:10 Ur Barbiturates Screen Negative ng/mL (Ckbjkv=704) 06/20/17 15:10 Ur Phencyclidine Scrn Negative ng/mL (Cutoff=25) 06/20/17 15:10 Ur Amphetamines Screen Positive ng/mL (Uriwwm=4504) H 06/20/17 15:10 U Benzodiazepines Scrn Negative ng/mL (Mxpjiy=047) 06/20/17 15:10 Urine Cocaine Screen Negative ng/mL (Cutoff= 300) 06/20/17 15:10 U Marijuana (THC) Screen Negative ng/mL (Cutoff = 50) 06/20/17 15:10 Ethyl Alcohol < 10 mg/dL (0-10) 06/20/17 15:10 Hepatitis A IgM Ab Nonreactive (Nonreactive) 06/21/17 01:07 Hep Bs Antigen Nonreactive (Nonreactive) 06/21/17 01:07 Hep B Core IgM Ab Nonreactive (Nonreactive) 06/21/17 01:07 Hepatitis C Ab Screen Reactive (Nonreactive) H 06/21/17 01:07 Consult Discharge Plan - Plan Instructions: Chronic Obstructive Pulmonary Disease (DC) Additional Instructions: Follow up with neurology. You need an MRI in 1 year for follow-up regarding pineal cyst. This can be coordinated with the neurologists office. Referrals: Betty Rodriguez MD [Partnered Physician] - (Possible seizures, pineal cyst in 1-2 weeks) NONE,PCP [Primary Care Provider] - (PATIENT IS WAITING ON A BED AT A PSYCH UNIT , NO PCP APPOINTMENT NEEDED)
[2017-06-28] MEDS ORDERED: levETIRAcetam 250 MG TABLET PO SCH (18:00)
== END 2017-06-28 18:07 | DRG 773 ==
LOC: EMEROO 14:46 → 3BNU 14:46 → ICNU 06-23 14:35 → 2NNU 06-23 19:53 → SUATTDRO 06-24 10:20
PROVIDERS: ADMIT Nurse Practitioner Family; ATTEND Internal Medicine

== ENCOUNTER 2017-06-28 17:26 | Inpatient (IN) ==
[2017-06-28] MEDS ORDERED: Mag Hydrox/Al Hydrox/Simeth 30 ML UDC PO PRN (18:37)
[2017-06-28] MEDS ORDERED: MOM Conc 10 ML UD.LIQ PO PRN (18:37)
[2017-06-28] MEDS ORDERED: Acetaminophen 325 MG TABLET PO PRN (18:37)
[2017-06-28] MEDS ORDERED: *HR* LORazepam 1 MG TABLET PO PRN (18:37)
[2017-06-28] MEDS ORDERED: *HR* LORazepam 2 MG/ML VIAL IM PRN (18:37)
[2017-06-28] MEDS ORDERED: Haloperidol Lactate 5 MG/ML VIAL IM PRN (18:37)
[2017-06-28] MEDS: traZODone 50 MG TABLET PO PRN (21:04)
[2017-06-28] MEDS: hydrOXYzine pamoate 25 MG CAPSULE PO PRN (21:04)
[2017-06-29] MEDS: levETIRAcetam 250 MG TABLET PO SCH ×2 (06:21→18:21)
[2017-06-29] MEDS: Thiamine (B-1) 100 MG TABLET PO SCH (08:52)
--- NOTE | 2017-06-29 13:51 | Discharge Summary ---
Date of Encounter: 06/29/17 Time of Encounter: 13:30 Medications - Discharge Medications Chlordiazepoxide [Librium] 25 mg PO QID 3 Days #14 capsule 06/28/17 [Rx] Thiamine (B-1) [Vitamin B-1] 100 mg PO DAILY tablet 06/28/17 [Rx] levETIRAcetam [Keppra] 1,000 mg PO Q12HR tablet 06/28/17 [Rx] 3 Allergy/AdvReac Type Severity Reaction Status Date / Time No Known Allergies Allergy Verified 06/21/17 10:23 Provider Date of admission: 06/28/17 17:26 Primary care physician: PCP NONE Assessment and Plan - Follow up Plan Follow up with: NONE,PCP [Primary Care Provider] - Hospital Course Hospital course: Mr. Bates is a 32 year old male - Time Spent with Patient Total time spent providing and/or coordinating discharge services:
--- NOTE | 2017-06-29 13:58 | Psychiatry History & Physical ---
Date of Encounter: 06/29/17 Time of Encounter: 13:30 History of Present Illness Patient Stated Chief Complaint: I need to get help, i trie dto kill myslef last night Medicare Admission Attestation: For traditional Medicare patients the provided hospital inpatient services are reasonable and necessary and in the case of services not specified as inpatient -only under 42 CFR 419.22 (n), that they are appropriately provided as inpatient services in accordance 42 CFR 412.3. For Critical Access Hospital the patient may reasonably be expected to be discharged or transferred to a hospital within 96 hours after admission to the Critical Access Hospital. Admitted From: Intrahospital Transfer Plans for Post Hospital Care: Transfer Other History of Present Illness: Mr. Bates is a 32 year old male The patient was in his usual state of health and mood when he was released from [facility] and [facility] correctional facilities 07/28/2016 for the first month he did then he started using drugs that he lost his history patient was a heroin addict and used needles and then he decided to switch to meth and still used needles. The patient presented to the emergency room suicidal but had a rather complicated problem with alcohol this included alcohol induced seizures delirium tremens agitation. While seen in the ICU yesterday the patient had taken the leads and attempted just to strangle himself. The patient was observed to be having venous congestion and change in color the face when these were taken away from him he was admitted to want a last night. The patient has low mood diminished self-esteem diminished interest guilt no health concerns with seizure and hepatitis C decreased energy decreased appetite and poor sleep. The patient had suicidal ideation this is ongoing. No immediate plans to kill himself on the unit however he is an unreliable historian and is not able to assure for his safety. He notes multiple stressors have mounted up to cause him to feel suicidal. This includes being out of senior living being homeless and his girlfriend had a baby daughter outside of the relationship creating concerns about infidelity. Prior to 2016 the patient had not had significant senior living times with only 6 months of his life he spent senior living he has had no medication treatment such as Suboxone and methadone Narcan or Vivitrol. Past psychiatric history none no previous suicide attempts Past medical history Sit surgeries: Nose Illnesses hepatitis C, COPD history of pneumonia Allergies: NKDA The patient is on the nicotine patch. He has a history of smoking. Family history. The patient's mother had a psychiatric illness. He says that alcohol abuse was prevalent throughout everybody in his family one brother one cousin had problems with drugs. There is no family history of suicide. The patient's single white male. He graduated high school and then he went to work he worked at [employer] and lost his job due to drugs and alcohol. Currently he is homeless. Review of systems patient has care source. He has eye problems and wears contacts. Today's unsteady. He has a broken fifth digit of the right hand. History of deep cheese he had a history of non-epileptiform seizure activity and a rule out for R 44.5. The patient is willing to begin Prozac 20 mg every morning is willing to go into residential setting to help his sobriety. 3 years ago he did go to the refuge for a period of rehabilitation but relapsed shortly thereafter. Past Med Surg Social Fam HX - Past Medical History Source: patient Medical history: COPD, hepatitis - Past Psychiatric History Psychiatric history: Reports: no psych history Family psychiatric history: Yes Family History of Suicide: None - Past Surgical History Surgical History: no surgical history, other - Social History Smoking Status: Current every day smoker Smokeless Tobacco Status: No Alcohol use: heavy, recent Drug use: cocaine, methamphetamine, IV Drug Use, other Occupational status: unemployed Current living situation: Other Activity Level: Independent ambulation Recent Out of Country Travel Within the Last 8 Weeks: No Exposure or Possible Exposure to Illness During Travel: No - Family History Father Family Member Ethnicity: Non- Living Status: Still Living Hx Family Cardiac Disorders: Yes Mother Family Member Ethnicity: Non- Living Status: Still Living Hx Family Autoimmune Disorders: Yes (RA) Sister History Unknown: Yes Name: Gela Age: 48 Family Member Ethnicity: Non- Living Status: Still Living Hx Family Cardiac Disorders: No Hx Family Respiratory Disorders: No Hx Family Cancer: No Hx Family GI Disorders: No Hx Family Genitourinary Disorders: No Hx Family Endocrine Disorder: No Hx Family Musculoskeletal Disorders: No Hx Family Neuromuscular Disorders: No Hx Family Neurologic Disorders: No Hx Family HEENT Disorders: No Hx Family Autoimmune Disorders: No Hx Family Reproductive Disorders: No Hx Family Psychosocial Disorders: No Hx Family Medical Disorders: No Medications & Allergies Chlordiazepoxide [Librium] 25 mg PO QID 3 Days #14 capsule 06/28/17 [Rx] Thiamine (B-1) [Vitamin B-1] 100 mg PO DAILY tablet 06/28/17 [Rx] levETIRAcetam [Keppra] 1,000 mg PO Q12HR tablet 06/28/17 [Rx] 3 Allergy/AdvReac Type Severity Reaction Status Date / Time No Known Allergies Allergy Verified 06/21/17 10:23 Review of Systems Constitutional: Denies: fever, chills, weakness, weight change Genitourinary male: Reports: frequency Musculoskeletal: Reports: joint pain Neurological: Reports: abnormal gait Psychiatric: Reports: depression, change in appetite, difficulty concentrating Endocrine: Reports: polyuria Exam - HEENT Head exam IM: Present: normal inspection, normocephalic Eye exam IM: Present: EOMI, PERRL ENT exam IM: Present: mucous membranes dry - Neurological Neurological exam IM: Present: abnormal gait, CN II-XII intact - Respiratory Respiratory exam IM: Present: CTAB - GI/Abdominal GI/Abdominal exam IM: Present: normal bowel sounds - Extremities Extremities exam IM: Present: warm - Skin Skin exam IM: Present: warm Results - Vital Signs Vital signs: Temp Pulse Resp BP 98.2 F 79 16 96/68 06/29/17 09:00 06/29/17 09:00 06/29/17 09:00 06/29/17 09:00 Assessment and Plan (1) Other recurrent depressive disorders Current visit: Yes Status: Acute Plan: Admit inpatient for safety and stabilization, Suicide Precautions per unit protocol Risks, benefits, side effects, alternatives discussed w/pt: Yes Patient agreeable to treatment: Yes Plans for Post Hospital Care: Transfer Other Estimated Length of Stay (Days): 12 (2) Suicidal ideations Current visit: Yes Status: Acute Plan: Admit inpatient for safety and stabilization, Suicide Precautions per unit protocol Risks, benefits, side effects, alternatives discussed w/pt: Yes Patient agreeable to treatment: Yes Plans for Post Hospital Care: Transfer Other Estimated Length of Stay (Days): 12 (3) Alcohol withdrawal seizure with complication Current visit: Yes Status: Resolved Plan: Admit inpatient for safety and stabilization, Suicide Precautions per unit protocol, Monitor sleep Risks, benefits, side effects, alternatives discussed w/pt: Yes Patient agreeable to treatment: Yes Plans for Post Hospital Care: Transfer Other (4) Uncomplicated opioid dependence Current visit: Yes Status: Chronic Plan: Family/Supportive other meeting Risks, benefits, side effects, alternatives discussed w/pt: Yes Patient agreeable to treatment: Yes Plans for Post Hospital Care: Transfer Other (5) Tobacco use Current visit: Yes Status: Chronic Plan: Monitor sleep, Family/Supportive other meeting Risks, benefits, side effects, alternatives discussed w/pt: Yes Patient agreeable to treatment: Yes Plans for Post Hospital Care: Transfer Other
[2017-06-29 15:00] LABS: Hemoglobin A1C 5.2 %
[2017-06-29] MEDS: traZODone 50 MG TABLET PO PRN (21:07)
[2017-06-29] MEDS: hydrOXYzine pamoate 25 MG CAPSULE PO PRN (21:07)
[2017-06-30] MEDS: levETIRAcetam 250 MG TABLET PO SCH ×3 (06:12→20:15)
[2017-06-30] MEDS: FLUoxetine 20 MG CAPSULE PO SCH (09:31)
[2017-06-30] MEDS: Thiamine (B-1) 100 MG TABLET PO SCH (09:31)
[2017-06-30] MEDS: Nicotine 21 MG PATCH.TD24 TD SCH (09:31)
--- NOTE | 2017-06-30 11:16 | Psychiatry Progress Note ---
Date of Encounter: 06/30/17 Time of Encounter: 11:15 Subjective Interval history: The patient reports that he is still somewhat sedated. The patient did take Prozac this morning and did tolerate the first dose. The patient had an episode last night. He does not recall what happens but nursing staff report that he was talking to his girlfriend had a heated discussion and later was found on the floor. The movements were more consistent with PN ES van with grand mal or other seizure. The patient would like to go for ongoing treatment. He is familiar with [place] as he had a friend is stabilized there and told them about. The patient wants to resume smoking and asked about smoking privileges there. Today the patient would like to see his daughter. His girlfriend might come up with her to visit. The patient is trying to regain his sobriety so that he can take on the role of father Review of Systems Neurological: Reports: abnormal gait Psychiatric: Reports: depression, change in appetite, difficulty concentrating Endocrine: Reports: polyuria Objective: Exam Patient orientation: Yes Person, Yes Time, Yes Place Level of alertness: Sedated Patient appearance: Unkempt Behavior: cooperative Psychomotor activity: Slowed Eye contact: Minimal Contact Mood description: Depressed Affect description: congruent with mood Speech pattern: Normal rate, Delayed Speech volume: Normal Thought process: Intact Judgment: Fair Insight: Partial Results - Vital Signs Vital Signs: Temp Pulse Resp BP 98 F 85 16 99/62 06/30/17 09:00 06/30/17 09:00 06/30/17 09:00 06/30/17 09:00 - Labs Labs: Laboratory Results - last 24 hr 06/29/17 14:25 Est Mean Plasma Glucose 103 Hemoglobin A1c 5.2 Assessment and Plan (1) Other recurrent depressive disorders Current visit: Yes Status: Acute Risks, benefits, side effects, alternatives discussed w/pt: Yes Patient agreeable to treatment: Yes (2) Suicidal ideations Current visit: Yes Status: Acute Risks, benefits, side effects, alternatives discussed w/pt: Yes Patient agreeable to treatment: Yes (3) Alcohol withdrawal seizure with complication Current visit: Yes Status: Resolved Risks, benefits, side effects, alternatives discussed w/pt: Yes Patient agreeable to treatment: Yes (4) Uncomplicated opioid dependence Current visit: Yes Status: Chronic Risks, benefits, side effects, alternatives discussed w/pt: Yes Patient agreeable to treatment: Yes (5) Tobacco use Current visit: Yes Status: Chronic Risks, benefits, side effects, alternatives discussed w/pt: Yes Patient agreeable to treatment: Yes (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
[2017-06-30] MEDS: hydrOXYzine pamoate 25 MG CAPSULE PO PRN (20:15)
[2017-06-30] MEDS: traZODone 50 MG TABLET PO PRN (20:15)
[2017-07-01] MEDS: levETIRAcetam 250 MG TABLET PO SCH (06:38)
[2017-07-01] MEDS: FLUoxetine 20 MG CAPSULE PO SCH (08:43)
[2017-07-01] MEDS: Thiamine (B-1) 100 MG TABLET PO SCH (08:43)
[2017-07-01] MEDS: Nicotine 21 MG PATCH.TD24 TD SCH (08:43)
--- NOTE | 2017-07-01 09:15 | Psychiatry Progress Note ---
Date of Encounter: 07/01/17 Time of Encounter: 09:00 Subjective Interval history: The patient came to see me. He recognized that he is in need of treatment for substance abuse. He identifies his girlfriend and his infant daughter is a motivation for treatment. Patient declined an offer to discontinue cigarette smoking or 2 tried to quit on outpatient basis. Nonetheless patient wishes to quit alcohol meth and other drug abuse. He is willing to go to a facility. Patient has had some dizziness and unsteadiness. The patient had a seizure- like event. Afterwards he reported to the staff that he felt that the seizures may have occurred and might be helpful in him obtaining rehabilitation. Reassured that a plan for alcohol and substance abuse rehabilitation would take place Discharge and that the seizure-like activity is probably not due to S epilepsy and would not help his efforts to get into rehabilitation that additional seizures might interfere with this process. Patient was counseled about this in gait so I will discontinue the Librium today Review of Systems Neurological: Reports: abnormal gait Psychiatric: Reports: change in appetite Objective: Exam Patient orientation: Yes Person, Yes Time, Yes Place Level of alertness: Alert Patient appearance: Appropriate Behavior: cooperative Psychomotor activity: Normal Eye contact: Maintains Eye Contact Mood description: Depressed Affect description: congruent with mood Speech pattern: Normal rate Speech volume: Soft/Quiet Thought process: Logical, Linear Thought content: Yes Intact Judgment: Fair Insight: Partial Results - Vital Signs Vital Signs: Temp Pulse Resp BP 99.2 F 96 18 99/64 06/30/17 20:27 06/30/17 20:27 06/30/17 20:27 06/30/17 20:27 Assessment and Plan (1) Other recurrent depressive disorders Current visit: Yes Status: Acute Plan: Continue hospitalization, Close observation, Monitor appetite Risks, benefits, side effects, alternatives discussed w/pt: Yes Patient agreeable to treatment: Yes (2) Suicidal ideations Current visit: Yes Status: Acute Plan: Continue hospitalization, Suicide Precautions per unit protocol Risks, benefits, side effects, alternatives discussed w/pt: Yes Patient agreeable to treatment: Yes (3) Alcohol withdrawal seizure with complication Current visit: Yes Status: Resolved Plan: Continue hospitalization, Close observation Risks, benefits, side effects, alternatives discussed w/pt: Yes Patient agreeable to treatment: Yes (4) Uncomplicated opioid dependence Current visit: Yes Status: Chronic Risks, benefits, side effects, alternatives discussed w/pt: Yes Patient agreeable to treatment: Yes (5) Tobacco use Current visit: Yes Status: Chronic Plan: Continue hospitalization Risks, benefits, side effects, alternatives discussed w/pt: Yes (patient aware) Patient agreeable to treatment: Yes ( declines treatment) (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 While there, clinic staff will open a case for you to become a client, and you will be seen daily by the clinic counselors and case mgr, both individually and in group. Your mental health treatment needs will be addressed concurrently. You will also be scheduled to see the psychiatric provider for outpatient psychiatric assessment, evaluation of need for medication assisted treatment, and medication management. )
[2017-07-02] MEDS: levETIRAcetam 250 MG TABLET PO SCH ×2 (00:24→06:41)
[2017-07-02] MEDS: FLUoxetine 20 MG CAPSULE PO SCH (08:43)
[2017-07-02] MEDS: Thiamine (B-1) 100 MG TABLET PO SCH (08:43)
[2017-07-02] MEDS: Nicotine 21 MG PATCH.TD24 TD SCH (08:44)
--- NOTE | 2017-07-02 09:34 | Discharge Summary ---
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 Status: Acute Medications - Discharge Medications Prescriptions: levETIRAcetam [Keppra] 1,000 mg PO Q12HR 30 Days #120 tablet FLUoxetine HCl [Prozac] 20 mg PO DAILY 30 Days #30 capsule hydrOXYzine pamoate [HydrOXYzine Pamoate] 25 mg PO TID PRN 30 Days #90 capsule PRN Reason: Anxiety Thiamine (B-1) [Vitamin B-1] 100 mg PO DAILY 30 Days #30 tablet traZODone [TraZODone] 50 mg PO HS PRN 30 Days #30 tablet PRN Reason: Insomnia FLUoxetine HCl [Prozac] 20 mg PO DAILY 30 Days #30 capsule 07/02/17 [Rx] Thiamine (B-1) [Vitamin B-1] 100 mg PO DAILY 30 Days #30 tablet 07/02/17 [Rx] hydrOXYzine pamoate [HydrOXYzine Pamoate] 25 mg PO TID PRN 30 Days #90 capsule 07/02/17 [Rx] levETIRAcetam [Keppra] 1,000 mg PO Q12HR 30 Days #120 tablet 07/02/17 [Rx] traZODone [TraZODone] 50 mg PO HS PRN 30 Days #30 tablet 07/02/17 [Rx] 3 Allergy/AdvReac Type Severity Reaction Status Date / Time No Known Allergies Allergy Verified 06/21/17 10:23 Results Procedures and tests throughout hospitalization: Completed Lab Orders Category Date Time Status A1C [Hgb A1C] Routine Lab 06/29/17 14:25 Completed Provider Date of admission: 06/28/17 17:26 Primary care physician: PCP NONE Discharging clinician: Lloyd Goddard Assessment and Plan - Patient/Caregiver Discharge Instructions Activity: increase activity as tolerated Diet: regular diet - Follow up Plan Follow up with: [facility] [Outside] (You are going into residential substance abuse treatment at [facility] on discharge from the hospital. While there, clinic staff will open a case for you to become a client, and you will be seen daily by the clinic counselors and case resolution specialist, both individually and in group. Your mental health treatment needs will be addressed concurrently. You will also be scheduled to see the psychiatric provider for outpatient psychiatric assessment, evaluation of need for medication assisted treatment, and medication management. ) Functional capacity at discharge: independent ambulation Overall status at discharge: patient is back to baseline Disposition: Home, Self-Care Hospital Course Hospital course: Mr. Bates is a 32 year old male He was admitted to the unit. During the initial phase the patient had significant sedation. He had emotional distress. Was started on Prozac and improve tolerated the medicine without difficulty. The patient had a history of seizures and remained on Keppra during this period of time however. The patient had at least 2 episodes that looked seizure like he was found on the floor but raised his hands and move them around. These did not appear to be grand mal absence of other seizures. The patient was considered for a diagnosis of conversion disorder with seizures however he did not meet the criteria because later he admitted that he was having these seizure -like events because of his belief that this would help him get into rehabilitation faster. The patient is interested in avoiding alcohol and methamphetamine heroin and other drugs of abuse review agreed to go to an outpatient treatment center with residential services. He agreed to a goal of abstinence. He still wanted to use nicotine however. The patient showed a brightened affect. Librium was initially sedating and he had some nystagmus . This was discontinued 24 hours before hospitalization the patient improved without any residual signs or unsteadiness. Patient had no return of seizure activity. Grand mal seizures receiving prior to his admission to this unit where the patient had suicide attempts suicidal ideation prior to admission the unit but no suicidal behavior or significant suicidal ideation prior to discharge. The patient was sleeping well and eating well and cooperative with his care at the time of discharge Time spent discussing smoking cessation with patient: 3 to 10 minutes Does patient wish to continue nicotine replacement upon disc: No - Time Spent with Patient Total time spent providing and/or coordinating discharge services: Less than 30 minutes Specific discharge activities: abstience from alcohol and drugs of abuse Quality - Multiple Antipsychotics Patient discharged on 2 or more antipsychotic medications: No Procedures - Procedures Procedures: Medication Management, Crisis Stabilization, Supportive Therapy, Group Therapy, Psychoeducational Therapy Mental Status Exam - Mental Status Exam Patient orientation: Yes Person, Yes Time, Yes Place Level of alertness: Alert Patient appearance: Appropriate, Well Groomed Behavior: calm, cooperative Psychomotor activity: Normal Eye contact: Maintains Eye Contact Mood description: Euthymic/stable Affect description: congruent with mood, full range Speech pattern: Normal rate, Normal rhythm, Normal tone Speech Volume: Normal Thought process: Linear, Goal Oriented Thought Content: No Suicidal ideation, No Homicidal ideation, No Overt delusions Perceptual Disturbances: No Auditory hallucinations, No Visual hallucinations Judgment: Fair Insight: Full
[2017-07-02 10:02] VITALS: BP 100/71
[2017-07-02] MEDS ORDERED: FLUARIX QUAD 2017-18 36MOS UP/PF 0.5 ML SYRINGE IM ONE (10:36)
== END 2017-07-02 11:25 | disposition home or self-care (01) | DRG 753 ==
LOC: 1ANU 17:26
PROVIDERS: ADMIT Psychiatry & Neurology Forensic Psychiatry; ATTEND Psychiatry & Neurology Forensic Psychiatry